=== PATIENT | male | born 1985 | race Caucasian/White ===

== ENCOUNTER 2016-08-02 08:32 | Emergency (ER) | payer MEDICAID ==
[~2016-08-02] VITALS: Ht 177.8 cm; Wt 93.0 kg
[~2016-08-02 08:32] MED LIST: AUGMENTIN 875-1 EACH PO; LEVAQUIN 750 M750 MG PO; MOTRIN600 M1 PO; MULTI VITAMINS1 TA1 PO; OMEPRAZOLE20 MG PO
[2016-08-02] MEDS ORDERED: PAROXETINE HCL20 MG NG (08:43)
--- NOTE | 2016-08-02 08:47 | Emergency Room Report ---
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 PT HAS PAIN IN HIS LEFT ANKLE. Onset of symptoms date/time:/ or onset unknown for:MEDICAL HX UNKNOWN Treatment Prior to Arrival: SAT INSTRUCTOR Provided by: Sepsis Risk Assessment: Temp: 98 B/P: 123/80 MAP: 94 Pulse: 86 Resp: 20 Recent fever? N Clinical Suspician of Infection? N Mental Status: 1 - Regular (Normal Baseline) Sepsis Risk:Low Sepsis Risk Have you (or family members/close friends) recently traveled outside the [place]? N If Yes, where/when: Have you had exposure to infectious disease within the past month? TB? Other? Specify: Comment The patient injured his ankle this morning when he stepped into a hole. He has pain around the lateral malleolus. No distal foot pain, knee pain, numbness or weakness. Took ibuprofen without improvement. ALLERGIES Coded Allergies: No Known Allergies (02/10/15) Home Medications Active Scripts Amoxicillin/Potassium Clav (Augmentin 875-125 Tablet) 1 EACH PO BID #20 TAB Prov: 05/23/16 Reported Medications PAROXETINE HCL (Paroxetine Hcl) 20 MG NG DAILY #30 History Medical History General CAD? No Angina: No [place]: No Hypertension? No Hyperlipidemia? No CHF? No DVT? No PE? No COPD? Yes Asthma? No Anemia? No GERD? No Gastric ulcers? No GI Bleed? No Hernia? No Thyroid Problems? No Hypothyroidism? No CVA? No Seizures? No Diabetes? No Renal Insuffiency? No End Stage Renal Disease? No UTI? No Stones? No BPH? No GB Disease: No Nephritic Syndrome? No Asplenia? No Hepatitis? No Sickle Cell Disease? No Arthritis? No Migraines? No Cataracts? No Glaucoma? No MRSA? No HIV? No TB? No Anxiety? No Depression? No Cancer? No Immunization Hx DT/Tetanus Unknown Surgical Hx Previous Surgery?Y LEFT ARM SURGERY Social History Smoking Hx Smoker: Current Every Day Smoker Tobacco: Yes Type Cigarettes Packs/day 1 1/2 - 2 Packs Alcohol Alcohol: Yes Review of Systems All Other Systems Reviewed and Negative Musculoskeletal see HPI Psychiatric/Neurological denies numbness, denies weakness Physical Exam Vital Signs Vital Signs Date Time Temp Pulse Resp B/P Pulse O2 O2 Flow FiO2 Ox Delivery Rate 08/02 0852 20 08/02 0837 98.0 86 20 123/80 97 General Appearance moderate distress Respiratory Status No: respiratory distress. Cardiovascular regular rate/rhythm, normal peripheral pulses Extremities tenderness and edema around his LEFT lateral malleolus. No ecchymosis. Skin intact., no tenderness of fifth metatarsal or mid foot. No proximal fibula tenderness. Neurologic alert, no motor/sensory deficits Medical Decision Making LABS/Meds/Orders Pt receiving controlled substance in ED? Yes Results/Orders Current Medication Orders Sig/Jeff Start time Last Medication Dose Route Stop Time Status Admin Oxycodone/ 1 EACH ONCE ONE 08/02 09 DC 08/02 Acetaminophen PO 08/02 0901 0852 Oxycodone/ 0 .STK-MED ONE 08/03 851 DC Acetaminophen PO Orders Procedure Date/time Status ANKLE-LT-3 VIEWS 08/02 08 Active XRAY/CT/US XRAY/CT/US XRAY ankle Comment Interpreted by Dillon Arce MD. Negative for fracture, dislocation, or foreign body. Departure Departure Disposition DC Home or Self Care(routine) Clinical Impression Primary Impression: Left ankle sprain Qualifiers: Encounter type: initial encounter Involved ligament of ankle: unspecified ligament Qualified Code: S93.402A - Sprain of unspecified ligament of left ankle, initial encounter Condition STABLE Referrals Frank Araya MD call for appointment if not better in 4-5 days. Patient Instructions DI for Ankle Sprain, How to Use Crutches Additional Instructions Use crutches for 4-5 days. Ice 20 minutes 4-5 times a day and elevate ankle for 2 days. Use air cast for 2 weeks. Ibuprofen for pain. Prescriptions Current Visit Scripts HYDROCODONE/ACETAMINOPHEN ([place] 5-325 Tablet) 1 TAB PO Q6HP PRN pain #6 TAB Ibuprofen (Ibuprofen 800MG) 800 MG PO Q8HP PRN pain #15 TAB ED Critical Care Critical Care No at 0919
--- NOTE | 2016-08-02 08:47 | Emergency Room Report ---
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 PT HAS PAIN IN HIS LEFT ANKLE. Onset of symptoms date/time:/ or onset unknown for:MEDICAL HX UNKNOWN Treatment Prior to Arrival: THERAPIST RRT Provided by: Sepsis Risk Assessment: Temp: 98 B/P: 123/80 MAP: 94 Pulse: 86 Resp: 20 Recent fever? N Clinical Suspician of Infection? N Mental Status: 1 - Regular (Normal Baseline) Sepsis Risk:Low Sepsis Risk Have you (or family members/close friends) recently traveled outside the [place]? N If Yes, where/when: Have you had exposure to infectious disease within the past month? TB? Other? Specify: Comment The patient injured his ankle this morning when he stepped into a hole. He has pain around the lateral malleolus. No distal foot pain, knee pain, numbness or weakness. Took ibuprofen without improvement. ALLERGIES Coded Allergies: No Known Allergies (02/10/15) Home Medications Active Scripts Amoxicillin/Potassium Clav (Augmentin 875-125 Tablet) 1 EACH PO BID #20 TAB Prov: 05/23/16 Reported Medications PAROXETINE HCL (Paroxetine Hcl) 20 MG NG DAILY #30 History Medical History General CAD? No Angina: No [place]: No Hypertension? No Hyperlipidemia? No CHF? No DVT? No PE? No COPD? Yes Asthma? No Anemia? No GERD? No Gastric ulcers? No GI Bleed? No Hernia? No Thyroid Problems? No Hypothyroidism? No CVA? No Seizures? No Diabetes? No Renal Insuffiency? No End Stage Renal Disease? No UTI? No Stones? No BPH? No GB Disease: No Nephritic Syndrome? No Asplenia? No Hepatitis? No Sickle Cell Disease? No Arthritis? No Migraines? No Cataracts? No Glaucoma? No MRSA? No HIV? No TB? No Anxiety? No Depression? No Cancer? No Immunization Hx DT/Tetanus Unknown Surgical Hx Previous Surgery?Y LEFT ARM SURGERY Social History Smoking Hx Smoker: Current Every Day Smoker Tobacco: Yes Type Cigarettes Packs/day 1 1/2 - 2 Packs Alcohol Alcohol: Yes Review of Systems All Other Systems Reviewed and Negative Musculoskeletal see HPI Psychiatric/Neurological denies numbness, denies weakness Physical Exam Vital Signs Vital Signs Date Time Temp Pulse Resp B/P Pulse O2 O2 Flow FiO2 Ox Delivery Rate 08/02 0852 20 08/02 0837 98.0 86 20 123/80 97 General Appearance moderate distress Respiratory Status No: respiratory distress. Cardiovascular regular rate/rhythm, normal peripheral pulses Extremities tenderness and edema around his LEFT lateral malleolus. No ecchymosis. Skin intact., no tenderness of fifth metatarsal or mid foot. No proximal fibula tenderness. Neurologic alert, no motor/sensory deficits Medical Decision Making LABS/Meds/Orders Pt receiving controlled substance in ED? Yes Results/Orders Current Medication Orders Sig/Jeff Start time Last Medication Dose Route Stop Time Status Admin Oxycodone/ 1 EACH ONCE ONE 08/02 09 DC 08/02 Acetaminophen PO 08/02 0901 0852 Oxycodone/ 0 .STK-MED ONE 08/03 851 DC Acetaminophen PO Orders Procedure Date/time Status ANKLE-LT-3 VIEWS 08/02 08 Active XRAY/CT/US XRAY/CT/US XRAY ankle Comment Interpreted by Dillon Arce MD. Negative for fracture, dislocation, or foreign body. Departure Departure Disposition DC Home or Self Care(routine) Clinical Impression Primary Impression: Left ankle sprain Qualifiers: Encounter type: initial encounter Involved ligament of ankle: unspecified ligament Qualified Code: S93.402A - Sprain of unspecified ligament of left ankle, initial encounter Condition STABLE Referrals Frank Araya MD call for appointment if not better in 4-5 days. Patient Instructions DI for Ankle Sprain, How to Use Crutches Additional Instructions Use crutches for 4-5 days. Ice 20 minutes 4-5 times a day and elevate ankle for 2 days. Use air cast for 2 weeks. Ibuprofen for pain. Prescriptions Current Visit Scripts HYDROCODONE/ACETAMINOPHEN ([place] 5-325 Tablet) 1 TAB PO Q6HP PRN pain #6 TAB Ibuprofen (Ibuprofen 800MG) 800 MG PO Q8HP PRN pain #15 TAB ED Critical Care Critical Care No at 0919
--- OUTSIDE RECORDS SUMMARY | 2016-08-02 08:57 | External Medical Summary Rpt ---
Author Author , Organization [employer] Address Unknown Phone Unavailable Care Team Providers Care Electrical Line Splicer Name Role Phone JAMAR DUARTE, JAMAR DUARTE Unavailable Unavailable JAMAR DUARTE, JAMAR DUARTE Unavailable Unavailable [employer] Unavailable Unavailable INC, [employer] [facility] Unavailable Unavailable PHYSICIANS, [facility] GABRIELA PADMINI, GABRIELA Unavailable Unavailable PADMINI [facility] Unavailable Unavailable INC, [facility] Unavailable Unavailable H[facility]PITAL, [facility] Unavailable Unavailable HOSPITAL P, [facility] EDUAR LAR, EDUAR Unavailable Unavailable [facility] Unavailable Unavailable IM[facility]ING [facility], [facility] CAROLA JR DWI, CAROLA Unavailable Unavailable JR DWI PETR TRAE, PETR Unavailable Unavailable [facility], Unavailable Unavailable PLL[facility], [facility] Unavailable Unavailable [facility], [facility], Unavailable Unavailable [facility] Unavailable Unavailable DIETARY TECH ST, [facility] Unavailable Unavailable PHYSICIANS, [facility] . [facility] CALDERON, Unavailable Unavailable [facility] YUMIKO FRANCO GEORGE, Unavailable Unavailable ST[facility]NE[facility]G GEORGE STEFANI SCO, STEFANI SCO Unavailable Unavailable Purpose Continuity of Care Document - 11-07-2011 through 2016 Problems Code Diagnosis DOS Provider Status I889 NONSPECIFIC 05-23-2016 [facility] LYMPHADENIT INC IS UNSPECIFIED Z720 TOBACCO USE 05-23-2016 [facility] INC K6289 OTHER 12-30-2015 JAMAR RAMACHANDRAN SPECIFIED DISEASES OF ANUS AND RECTUM K645 PERIANAL 12-30-2015 JAMAR RAMACHANDRAN VENOUS THROMBOSIS K122 CELLULITIS 08-25-2015 ST AND ABSCESS [facility] OF MOUTH PHYSICIANS Z6830 BODY MASS 08-25-2015 INDEX BMI REMY 30.0-30.9 PHYSICIANS ADULT V96997 ACUTE 05-27-2015 [place] SUPPURATIVE [facility] W/O HOSPITAL RUPT EAR DRUM UNS EAR J0190 ACUTE 05-27-2015 [place] SINUSITIS [facility] UNSPECIFIED HOSPITAL J029 ACUTE 05-27-2015 [place] PHARYNGITIS [facility] UNSPECIFIED B349 VIRAL 02-10-2015 [facility] INFE[facility], UNSPECIFIED PLLC J209 ACUTE 02-10-2015 [facility] BRONCHITIS [facility]ANS, UNSPECIFIED PLLC J449 CHRONIC 02-10-2015 [facility] DISEASE UNS R0602 SHORTNESS 02-10-2015 [place] [facility] R079 CHEST PAIN 02-10-2015 [facility] R918 OTHER 02-10-2015 [place] NONSPECIFIC MEDICAL ABNORMAL IMAGING ASS FINDING OF LUNG FIELD M545 LOW BACK 01-13-2015 ST. PAIN REMY YUMIKO 9057 LATE EFF 07-21-2014 ST SPRAIN&STRA REM[facility] IN W/O PHYSICIANS MENTION TENDON INJURY 30895 PAIN IN 07-19-2014 [facility] ANKLE AND OF [facility] FOOT 56181 SWELLING OF 07-19-2014 [facility] LIMB ASS[facility]IATES OF [facility] 13315 UNSPECIFIED 07-19-2014 [facility] ANKLE PHYSICIANS SPRAIN AND STRAIN 08591 UNSPECIFIED 12-18-2013 [facility] DIETARY TECH ST 7881 DYSURIA 12-18-2013 [facility] B34.9 VIRAL INFECTION, UNSPECIFIED J20.9 ACUTE BRONCHITIS, UNSPECIFIED M25.511 PAIN IN RIGHT SHOULDER T14.8 OTHER INJURY OF UNSPECIFIED BODY REGION Medications Na ND Rx Da Fi Fi Am Da Di Ph RX Ph St me C No te ll ll ou ys ag ar # ys at rm s nt no ma ic us Or Da si cy ia de te s n re d BE 67 04 05 30 10 00 RI Ac NZ 87 -1 -0 .0 00 TE ti ON 70 1- 5- 01 ve AT 10 20 20 17 AI AT 60 17 17 94 D E 1 24 PH 20 AR 0 MA MG CY CA #3 PS 93 UL 8 E PA 68 04 05 30 30 00 RI Ac RO 38 -1 -0 .0 00 TE ti XE 20 1- 5- 01 ve TI 09 20 20 17 AI NE 80 17 17 94 D 1 25 PH HC AR L MA 20 CY MG #3 93 TA 8 BL ET AM 66 03 03 20 10 00 RI Ac OX 68 -0 -3 .0 00 TE ti -C 51 6- 1- 01 ve LA 00 20 20 17 AI V 10 17 17 40 D 87 0 10 PH 5- AR 12 MA 5 CY MG #3 TA 93 BL 8 ET TR 59 02 03 3. 2 00 RI Ac IA 76 -1 -1 00 00 TE ti ZO 23 3- 0- 0 01 ve LA 71 20 20 17 AI M 80 17 17 09 D 0. 4 09 PH 25 AR MA MG CY TA #3 BL 93 ET 8 AM 00 02 03 30 10 00 RI Ac OX 78 -1 -1 .0 00 TE ti IC 12 4- 0- 00 01 ve IL 61 20 20 17 AI LI 30 17 17 10 D N 5 26 PH 50 AR 0 MA MG CY CA #3 PS 93 UL 8 E SC 65 02 03 15 3 00 RI Ac OM 16 -1 -1 .0 00 TE ti ET 20 4- 0- 00 01 ve SCHROEDER 52 20 20 17 AI ZI 11 17 17 10 D NE 0 29 PH AR 25 MA CY MG #3 TA 93 BL 8 ET IB 53 02 03 30 7 00 RI Ac UP 74 -1 -1 .0 00 TE ti RO 60 4- 0- 00 01 ve FE 46 20 20 17 AI N 50 17 17 10 D 60 1 30 PH 0 AR MG MA CY TA BL #3 ET 93 8 ME 00 02 03 21 6 00 RI Ac TH 78 -1 -1 .0 00 TE ti YL 15 4- 0- 00 01 ve SC 02 20 20 17 AI ED 20 17 17 10 D NI 7 31 PH SO AR LO MA NE CY 4 #3 MG 93 8 DO SE PK LI 50 02 03 10 5 00 RI Ac DO 38 -1 -1 0. 00 TE ti CA 30 4- 0- 00 01 ve IN 77 20 20 0 17 AI E 50 17 17 10 D 2% 4 32 PH AR MA SC CY OU S #[address] 8 HY 00 02 03 [address] 40 -1 -1 .0 00 TE ti OC 60 4- 0- 00 01 ve OD 12 20 20 17 AI ON 30 17 17 10 D -A 1 34 PH CE AR TA MA DE CY NO PH #3 EN 93 8 5- 32 5 AM 00 12 01 20 10 00 WA Ac OX 14 -2 -2 .0 00 L- ti IC 39 9- 0- 00 07 MA ve IL 95 20 20 46 RT LI 10 16 17 15 N 1 16 PH 87 AR 5 MA MG CY TA #5 BL 91 ET BR 60 12 01 18 3 00 WA Ac OM 43 -2 -2 0. 00 L- ti PH 20 9- 0- 00 07 MA ve EN 27 20 20 0 46 RT IR 51 16 17 15 -P 6 17 PH SE AR UD MA OE CY PH ED #5 -D 91 M SY R Procedures Procedure DOS Code Location Performer Comment IAACORDELL [address] ST PETR 6 REM[facility] LARKIN STREPTOCO CCUS PHYSICIAN GROUP A S ECG 27551 [facility] SRIVASTAVA JR ROUTINE 5 [facility] W/LEAST P 12 LDS I&[place] [address] [facility] PACKER TROPONIN [address] [facility] QUANTITAT INC INC MOHINI BLOOD 34202 [facility] PACKER COUNT [address] [facility] COMPLETE INC INC AUTO&AUTO DIFRNTL WBC INJECTION J2405 [facility] PACKER [address] [facility] ONDANSETR INC INC ON HCL PER 1 MG COMPREHEN 04070 [facility] PACKER SIVE [address] [facility] METABOLIC INC INC PANEL CREATINE 83250 [facility] PACKER KINASE MB [address] [facility] FRACTION INC INC ONLY ECG 19268 [facility] PACKER ROUTINE [address] [facility] ECG INC INC W/LEAST 12 LDS TRCG ONLY W/O I&R FIBRIN 96675 [facility] PACKER DGRADJ [address] [facility] PRODUCTS INC INC D-DIMER QUAL/SEMI AVIVA IMMUNOASS 69336 [facility] PACKER AY NFCT [address] [facility] AGT ANTB INC INC QUAL/SEMI AVIVA 1 STEP CREATINE 59004 [facility] PACKER KINASE [address] [facility] TOTAL INC INC RADIOLOGI 54917 [facility] PACKER C EXAM [address] [facility] CHEST 2 INC INC VIEWS FRONTAL&[place] [address] [facility] PACKER INFUSION [address] [facility] THERAPY/P INC INC ROPHYLAXI S /DX 1ST TO 1 HR THERAPEUT 31607 [facility] PACKER IC [address] [facility] INJECTION INC INC IV PUSH EACH NEW DRUG THERAPEUT [address]10 ST STERNEBER IC 5 REMY Sanchez GEORGE PROPHYLAC TIC/DX PHYSICIAN INJECTION S SUBQ/IM RADEX [address] SPINE 5 REMY ALBERTO LUMBOSACR YUMIKO CALDERON AL 2/[address] IN[address] STERNEBER 5 REMY Sanchez GEORGE METHYLPRE DNISOLONE PHYSICIAN ACETATE S 80 MG CRTCHS E0114 [facility] UNDARM 5 TECHNOLOG TECHNOLOG OTH THAN IES INC IES INC WOOD PAIR PAD TIP&HNDGR IP ANKLE L4350 [facility] CONTROL 5 TECHNOLOG TECHNOLOG ORTHOSIS IES INC IES INC STIRRUP STYL RIGID PREFAB RADEX 88455 RADIOLOGY STEFANI SCO ANKLE 5 COMPLETE ASSOCIATE MINIMUM 3 S OF NOTH VIEWS IADNA [address] NEISSERIA 4 [facility] GONORRHOE DIETARY TECH ST DIETARY TECH ST AE AMPLIFIED PROBE TQ IADNA [address] CHLAMYDIA 4 [facility] TRACHOMAT DIETARY TECH ST DIETARY TECH ST IS AMPLIFIED PROBE TQ Encounters Encounter Start End Date Code Location Performer Type Date HOSPITAL [facility] - 7 7 [facility]EN [facility] T OFFICE 68800 [facility] 7 7 [facility] T VISIT 5 [facility] MINUTES OFFICE 18754 JAMAR ROLDAN [facility] OUTPATIEN 6 6 [facility] 30 MINUTES OFFICE 99018 [facility] OUTPATIEN 6 6 REMY KAT T VISIT 15 PHYSICIAN MINUTES S OFFICE 00205 [facility] OUTPAT[facility]EN 6 6 [facility] 15 MINUTES EMERGENCY 10912 [facility] COOPER DEPT 5 5 PHYSICIAN U VISIT S, PLLC HIGH SEVERITY& THREAT [facility] - 5 5 [facility] OUTPATIEN INC T OFFICE 92530 [facility] OUTPATIEN [address] - 5 5 REM[facility] T OFFICE [address] PETR GIRON 5 5 REMY LARKIN T VISIT 15 PHYSICIAN MINUTES S EMERGENCY 59756 JOSÉ MANUEL WITT 5 5 EMERGENCY [facility] T VISIT PHYSICIAN HIGH/URGE S [facility] ST - 4 4 [facility] T DIETARY TECH ST
--- OUTSIDE RECORDS SUMMARY | 2016-08-02 08:57 | External Medical Summary Rpt ---
Author Author , Organization [employer] Address Unknown Phone Unavailable Care Team Providers Care Criminal Justice Social Worker Name Role Phone JAMAR DUARTE, JAMAR DUARTE Unavailable Unavailable JAMAR DUARTE, JAMAR DUARTE Unavailable Unavailable [employer] Unavailable Unavailable INC, [employer] [facility] Unavailable Unavailable PHYSICIANS, [facility] GABRIELA PADMINI, GABRIELA Unavailable Unavailable PADMINI [facility] Unavailable Unavailable INC, [facility] Unavailable Unavailable [facility]ITAL, [facility] Unavailable Unavailable [facility]OSPITAL P, [facility] EDUAR LAR, EDUAR Unavailable Unavailable [facility] Unavailable Unavailable IMAGING ASS, [facility] CAROLA JR DWI, CAROLA Unavailable Unavailable JR DWI PETR TRAE, PETR Unavailable Unavailable TRAE [facility], Unavailable Unavailable PLLC, [facility]available Unavailable OF [facility], [facility], [facility]available Unavailable [facility] Unavailable Unavailable AIRPORT DRIVER ST, [facility] AIRPORT DRIVER [facility] Unavailable Unavailable PHYSICIANS, [facility] . REMY CALDERON, Unavailable Unavailable [facility] YUMIKO FRANCO GEORGE, Unavailable Unavailable STERNEBERG GEORGE STEFANI SCO, STEFANI SCO Unavailable Unavailable Purpose Continuity of Care Document - 11-07-2011 through 2016 Problems Code Diagnosis DOS Provider Status I889 NONSPECIFIC 05-23-2016 [facility] LYMPHADENIT INC IS UNSPECIFIED Z720 TOBACCO USE 05-23-2016 [facility] INC K6289 OTHER 12-30-2015 JAMAR RAMACHANDRAN SPECIFIED DISEASES OF ANUS AND RECTUM K645 PERIANAL 12-30-2015 JAMAR RAMACHANDRAN VENOUS THROMBOSIS K122 CELLULITIS 08-25-2015 ST AND ABSCESS REM[facility] OF MOUTH PHYSICIANS Z6830 BODY MASS 08-25-2015 INDEX BMI REMY 30.0-30.9 PHYSICIANS ADULT J08384 ACUTE 05-27-2015 [place] SUPPURATIVE [facility] W/O HOSPITAL RUPT EAR DRUM UNS EAR J0190 ACUTE 05-27-2015 [place] SINUSITIS [facility] UNSPECIFIED HOSPITAL J029 ACUTE 05-27-2015 [place] PHARYNGITIS [facility] UNSPECIFIED B349 VIRAL 02-10-2015 [facility] INFECTION [facility], UNSPECIFIED PLLC J209 ACUTE 02-10-2015 [facility] BRONCHITIS PHYSICIANS, UNSPECIFIED PLLC J449 CHRONIC 02-10-2015 [facility] P DISEASE UNS R0602 SHORTNESS 02-10-2015 [place] [facility] R079 CHEST PAIN 02-10-2015 [facility] R918 OTHER 02-10-2015 [place] NONSPECIFIC MEDICAL ABNORMAL IMAGING ASS FINDING OF LUNG FIELD M545 LOW BACK 01-13-2015 ST. PAIN REMY YUMIKO 9057 LATE EFF 07-21-2014 ST SPRAIN&STRA REMY IN W/O PHYSICIANS MENTION TENDON INJURY 91147 PAIN IN 07-19-2014 [facility] ANKLE AND OF [facility] FOOT 26031 SWELLING OF 07-19-2014 RAD[facility] LIMB ASSOCIATES OF [facility] 89469 UNSPECIFIED 07-19-2014 [facility] SITE OF EMERGENCY ANKLE PHYSICIANS SPRAIN AND STRAIN 30684 UNSPECIFIED 12-18-2013 [facility]IS [facility] AIRPORT DRIVER [facility] 7881 DYSURIA 12-18-2013 [facility] DRIVER ST B34.9 VIRAL INFECTION, UNSPECIFIED J20.9 ACUTE [...] CA #3 PS 93 UL 8 E UT 65 02 03 15 3 00 RI [...] YL 15 4- 0- 00 01 ve UT 02 20 20 17 AI ED 20 [...] 1 34 PH CE AR TA MA AR CY NO PH #3 EN 93 8 [...] Procedure DOS Code Location Performer Comment IAACORDELL 07762 ST PETR 6 REMY LARKIN STREPTOCO CCUS PHYSICIAN GROUP A S ECG 03531 [facility] SRIVASTAVA JR ROUTINE 5 [facility] W/LEAST P 12 LDS I&[place] [address] [facility] PACKER TROPONIN 5 [facility] QUANTITAT INC INC MOHINI BLOOD 87279 [facility] PACKER COUNT 5 [facility] COMPLETE INC INC AUTO&AUTO DIFRNTL WBC INJECTION J2405 [facility] PACKER 5 [facility] ONDANSETR INC INC ON HCL PER 1 MG COMPREHEN 89457 [facility] PACKER SIVE 5 [facility] METABOLIC INC INC PANEL CREATINE 03849 [facility] PACKER KINASE MB 5 [facility] FRACTION INC INC ONLY ECG 60771 [facility] PACKER ROUTINE 5 [facility] ECG INC INC W/LEAST 12 LDS TRCG ONLY W/O I&R FIBRIN 00151 [facility] PACKER DGRADJ 5 [facility] PRODUCTS INC INC D-DIMER QUAL/SEMI AVIVA IMMUNOASS 93811 [facility] PACKER AY NFCT 5 [facility] AGT ANTB INC INC QUAL/SEMI AVIVA 1 STEP CREATINE 02785 [facility] PACKER KINASE 5 [facility] TOTAL INC INC RADIOLOGI 60973 [facility] PACKER C EXAM 5 [facility] CHEST 2 INC INC VIEWS FRONTAL&[place] [address] [facility] PACKER INFUSION 5 [facility] THERAPY/P INC INC ROPHYLAXI S /DX 1ST TO 1 HR THERAPEUT 91085 [facility] PACKER IC 5 [facility] INJECTION INC INC IV PUSH EACH NEW DRUG THERAPEUT [address]56 ST STERNEBER IC 5 REMY Sanchez GEORGE PROPHYLAC TIC/DX PHYSICIAN INJECTION S SUBQ/IM RADEX [address] SPINE 5 REMY ALBERTO LUMBOSACR [...] IES INC STIRRUP STYL RIGID PREFAB RADEX 49634 RADIOLOGY STEFANI SCO ANKLE 5 COMPLETE ASSOCIATE MINIMUM 3 S OF NOTH VIEWS IADNA [address] NEISSERIA 4 [facility] CTR MED CTR GONORRHOE AIRPORT DRIVER ST AIRPORT DRIVER ST AE AMPLIFIED PROBE TQ IADNA [address] CHLAMYDIA 4 [facility] CTR MED CTR TRACHOMAT AIRPORT DRIVER ST AIRPORT DRIVER ST IS AMPLIFIED PROBE TQ Encounters Encounter Start End Date Code Location Performer Type Date HOSPITAL [facility] - 7 7 [facility] T OFFICE 99405 [facility] OUT[facility] 7 7 [facility] T VISIT 5 [facility] MINUTES OFFICE 01992 JAMAR ROLDAN [facility] OUTPATI[facility] 6 6 T [facility] 30 MINUTES OFFICE 67515 [facility] OUTPATIEN 6 6 REMY KAT T VISIT 15 PHYSICIAN MINUTES S OFFICE 18656 [facility] OUTPAT[facility]EN 6 6 [facility] 15 MINUTES EMERGENCY [id number] ELIEZER COOPER DEPT 5 5 PHYSICIAN U VISIT S, PLL[facility] HIGH SEVERITY& THREAT [facility] - 5 5 [facility] T OFFICE 47978 [facility] [address] - 5 5 [facility] T OFFICE [address] [facility] 5 5 REMY LARKIN T VISIT 15 PHYSICIAN MINUTES S EMERGENCY [id number] JOSÉ MANUEL WITT 5 [address] [facility] T VISIT PHYSICIAN HIGH/URGE S [facility] - 4 4 [facility] T AIR[facility] DR[facility] ST
--- OUTSIDE RECORDS SUMMARY | 2016-08-02 08:58 | External Medical Summary Rpt ---
Author Author , Organization [employer] Address Unknown Phone Unavailable Care Team Providers Care Central Supply Assistant Name Role Phone JAMAR DUARTE, JAMAR DUARTE Unavailable Unavailable ROLDAN DUARTE, JAMAR DUARTE Unavailable Unavailable [employer] Unavailable Unavailable INC, [employer] [facility] Unavailable Unavailable PHYSICIANS, [facility] GABRIELA PADMINI, GABRIELA Unavailable Unavailable PADMINI [facility] Unavailable Unavailable INC, [facility] Unavailable [facility] Un[facility] P, [facility] P EDUAR LAR, EDUAR Unavailable Unavailable [facility] Unavailable Unavailable [facility], [facility] CAROLA JR DWI, CAROLA Unavailable Unavailable JR DWI PETR LARKIN, PETR Unavailable Unavailable [facility], Unavailable Unavailable PLL[facility], [facility] Unavailable Unavailable OF [facility], [facility], Unavailable Unavailable [facility] Unavailable Unavailable [facility], [facility] Unavailable Unavailable PH[facility]ICIANS, [facility] REMYSUZAN CALDERON, Unavailable Unavailable [facility] YUMIKO STERNEBGUALBERTO GEORGE, Unavailable Unavailable STERNEBERG GEORGE STEFANI SCO, STEFANI SCO Unavailable Unavailable Purpose Continuity of Care Document - 12-18-2013 through 2016 Problems Code Diagnosis DOS Provider Status I889 NONSPECIFIC 05-23-2016 [facility] LYMPHADENIT INC IS UNSPECIFIED Z720 TOBACCO USE 05-23-2016 [facility] INC K6289 OTHER 12-30-2015 JAMAR RAMACHANDRAN SPECIFIED DISEASES OF ANUS AND RECTUM K645 PERIANAL 12-30-2015 JAMAR RAMACHANDRAN VENOUS THROMBOSIS K122 CELLULITIS 08-25-2015 ST AND ABSCESS [facility] OF MOUTH PHYSICIANS Z6830 BODY MASS 08-25-2015 INDEX BMI REMY 30.0-30.9 PHYSICIANS ADULT [id number] ACUTE 05-27-2015 [place] SUPPURATIVE [facility] W/O HOSPITAL RUPT EAR DRUM UNS EAR J0190 ACUTE 05-27-2015 [place] SINUSITIS [facility] UNSPECIFIED HOSPITAL J029 ACUTE 05-27-2015 [place] PHARYNGITIS [facility] UNSPECIFIED B349 VIRAL 02-10-2015 [facility] INFECTION [facility], UNSPECIFIED PLLC J209 ACUTE 02-10-2015 [facility] BRONCHITIS PHYSICIANS, UNSPECIFIED PLLC J449 CHRONIC 02-10-2015 [facility] P DISEASE UNS R0602 SHORTNESS 02-10-2015 [place] [facility] R079 CHEST PAIN 02-10-2015 [facility] R918 OTHER 02-10-2015 [place] NONSPECIFIC MEDICAL ABNORMAL IMAGING ASS FINDING OF LUNG FIELD M545 LOW BACK 01-13-2015 ST. PAIN [facility]Y YUMIKO 9057 LATE EFF 07-21-2014 ST SPRAIN&STRA [facility] IN W/O PHYSICIANS MENTION TENDON INJURY 32764 PAIN IN 07-19-2014 [facility] JOINT, ASSOCIATES ANKLE AND OF [facility] FOOT 68785 SWELLING OF 07-19-2014 [facility] LIMB [facility] OF [facility] 94765 UNSPECIFIED 07-19-2014 [facility] EMERGENCY ANKLE PHYSICIANS SPRAIN AND STRAIN 78158 UNSPECIFIED 12-18-2013 ST URETHRITIS [facility] CTR [facility] [facility] [facility] 7881 DYSURIA 12-18-2013 [facility] CTR [facility] S[facility] Medications Na ND Rx Da Fi Fi [...] 00 TE ti ON 70 1- 5- 00 01 ve AT 10 20 20 17 AI AT 60 17 17 94 D E 1 24 PH 20 AR 0 MA MG CY CA #3 PS 93 UL 8 E PA 68 04 05 30 30 00 RI Ac RO 38 -1 -0 .0 00 TE ti XE 20 1- 5- 00 01 ve TI 09 20 20 17 AI NE 80 17 17 94 D 1 25 PH HC AR L MA 20 CY MG #3 93 TA 8 BL ET AM 66 03 03 20 10 00 RI Ac OX 68 -0 -3 .0 00 TE ti -C 51 6- 1- 00 01 ve LA 00 20 20 17 AI V 10 17 17 40 D 87 0 10 PH 5- AR 12 MA 5 CY MG #3 TA 93 BL 8 ET AM 00 02 03 30 10 00 RI Ac OX 78 -1 -1 .0 00 TE ti IC 12 4- 0- 00 01 ve IL 61 20 20 17 AI LI 30 17 17 10 D N 5 26 PH 50 AR 0 MA MG CY CA #3 PS 93 UL 8 E MT 65 02 03 15 3 00 RI [...] YL 15 4- 0- 00 01 ve MT 02 20 20 17 AI ED 20 [...] 1 34 PH CE AR TA MA TN CY NO PH #3 EN 93 8 5- 32 5 TR 59 02 03 3. 2 00 RI Ac IA 76 -1 -1 00 00 TE ti ZO 23 3- 0- 0 01 ve LA 71 20 20 17 AI M 80 17 17 09 D 0. 4 09 PH 25 AR MA MG CY TA #3 BL 93 ET 8 AM 00 12 01 20 10 00 [...] Procedures Procedure DOS Code Location Performer Comment IAADIADOO [address] ST PETR 6 REM[facility] LARKIN ANGELESOCO [facility] S FIBRIN 93497 [facility] PACKER DGRADJ 5 [facility] PRODUCTS INC INC D-DIMER QUAL/SEMI AVIVA IMMUNOASS 30949 [facility] PACK[facility] AY NFCT 5 [facility] AGT ANTB INC INC QUAL/SEMI AVIVA 1 STEP CREATINE 59629 [facility] KINASE 5 [facility] TOTAL INC INC ECG 08859 [facility] P[facility] ROUTINE 5 [facility] ECG INC INC W/LEAST 12 LDS TRCG ONLY W/O I&R INJECTION J2405 [facility] PACKER 5 [facility] ONDANSETR INC INC ON HCL PER 1 MG COMPREHEN 27519 [facility] SIVE [facility] METABOLIC INC INC PANEL CREATINE 95550 [facility] PACK[facility] KINASE MB 5 [facility] [place] [address] [facility] PACKER TROPONIN 5 [facility] QUANTITAT INC INC MOHINI BLOOD 80546 [facility] PACKER COUNT 5 [facility] COMPLETE INC INC AUTO&[place] [address] [facility] INFUSION 5 [facility] THERAPY/P INC INC ROPHYLAXI S /DX 1ST TO 1 HR THERAPEUT 26071 [facility] PACKER IC 5 [facility] INJECTION INC INC IV PUSH EACH NEW DRUG RADIOLOGI 14697 [facility] PACKER C EXAM 5 [facility] CHEST 2 INC INC VIEWS FRONTAL&L ATERAL ECG 19188 [facility] SRIVASTAVA JR ROUTINE 5 [facility] W/LEAST P 12 LDS I&R ONLY INJECTION J1040 ST STERNEBER 5 REMY VAZQUEZ METHYLPRE DNISOLONE PHYSICIAN ACETATE S [address] STERNEBER IC 5 REMY Sanchez GEORGE PROPHYLAC TIC/DX PHYSICIAN INJECTION S SUBQ/IM RADEX [address] SPINE 5 REMY REMY LUMBOSACR YUMIKO YUMIKO AL 2/3 VIEWS CRTCHS E0114 [facility]VANCED ADVANCED UNDARM 5 TECHNOLOG TECHNOLOG OTH THAN IES INC IES INC WOOD PAIR PAD TIP&HNDGR IP ANKLE L4350 [facility]VANCED AD[facility]ANCED CONTROL 5 TECHNOLOG TECHNOLOG ORTHOSIS IES INC IES INC STIRRUP STYL RIGID PREFAB RADEX 90822 RADIOLOGY STEFANI SCO ANKLE 5 COMPLETE ASSOCIATE MINIMUM 3 S OF NOTH VIEWS IADNA [address] CHLAMYDIA 4 [facility] CTR MED CTR TRACHOMAT EDGE SANDER ST EDGE [facility]ANDER [facility] IS AMPLIFIED PROBE TQ IADNA [address] NEISSERIA 4 [facility] CTR MED CTR GONORRHOE EDGE SANDER [facility] EDGE SANDER [facility] AE AMPLIFIED PROBE TQ Encounters Encounter Start End Date Code Location Performer Type Date [facility] - 7 7 [facility] OUTPATIEN INC T OFFICE 84957 [facility] OUTPATIEN 7 7 [facility] T VISIT 5 [facility] MINUTES OFFICE 09117 JAMAR ROLDAN [facility] OUTPATI[facility] 6 6 T [facility] 30 MINUTES OFFICE 01477 PETR OUTPATIEN 6 6 REMY TRAE T VISIT 15 PHYSICIAN MINUTES S OFFICE 56142 [facility] 6 [facility] 15 [facility] - 5 5 [facility] OUTPATIEN INC T EMERGENCY 60776 [facility] DEPT 5 5 PHYSICIAN U VISIT S, PLLC HIGH SEVERITY& THREAT FUNJ OFFICE 30349 [facility] OUTPATIEN [address] - 5 5 REMY OUTPATIEN YUMIKO T OFFICE 51381 PETR OUTPATIEN 5 5 REMY TRAE T VISIT 15 PHYSICIAN MINUTES S EMERGENCY 31319 JOSÉ MANUEL WITT 5 5 EMERGENCY LAR DEPARTMEN T VISIT PHYSICIAN /ELICIA Bangura [facility] ST - 4 4 REM[facility] GIRON [facility] T EDGE SANDER ST
--- OUTSIDE RECORDS SUMMARY | 2016-08-02 08:58 | External Medical Summary Rpt ---
Author Author , Organization [employer] Address Unknown Phone Unavailable Care Team Providers Care Poultry Packer Name Role Phone JAMAR DUARTE, JAMAR DUARTE Unavailable Unavailable ROLDAN DUARTE, JAMAR DUARTE Unavailable Unavailable [employer] Unavailable Unavailable INC, [employer] [facility] Unavailable Unavailable PHYSICIANS, [facility] GABRIELA PADMINI, GABRIELA Unavailable Unavailable PADMINI [facility] Unavailable Unavailable INC, [facility] Unavailable Unavailable HOSPITAL, [facility] Unavailable Unavailable HOSPITAL P, [facility] P EDUAR LAR, EDUAR Unavailable Unavailable [facility] Unavailable Unavailable IM[facility]ING [facility], [facility] CAROLA JR DWI, CAROLA Unavailable Unavailable JR DWI PETR LARKIN, PETR Unavailable Unavailable [facility], Unavailable Unavailable PLLC, [facility] Unavailable Unavailable OF [facility], [facility], Unavailable Unavailable [facility] Unavailable Unavailable LOADER OPERATOR ST, [facility] LOAD[facility] OPERATOR [facility] Unavailable Unavailable PHYSICIANS, [facility]. REMYSUZAN CALDERON, Unavailable Unavailable [facility] YUMIKO STERNEBGUALBERTO GEORGE, Unavailable Unavailable STERNEBERG GEORGE STEFANI SCO, STEFANI SCO Unavailable Unavailable Purpose Continuity of Care Document - 12-18-2013 through 2016 Problems Code Diagnosis DOS Provider Status I889 NONSPECIFIC 05-23-2016 [facility] LYMPHADENIT INC IS UNSPECIFIED Z720 TOBACCO USE 05-23-2016 [facility] INC K6289 OTHER 12-30-2015 JAMAR RAMACHANDRAN SPECIFIED DISEASES OF ANUS AND RECTUM K645 PERIANAL 12-30-2015 JAMAR RAMACHANDRAN VENOUS THROMBOSIS K122 CELLULITIS 08-25-2015 ST AND ABSCESS [facility] OF MOUTH PHYSICIANS Z6830 BODY MASS 08-25-2015 INDEX BMI REMY 30.0-30.9 PHYSICIANS ADULT [id number] ACUTE 05-27-[address] [facility] W/O HOSPITAL RUPT EAR DRUM UNS EAR J0190 ACUTE 05-27-2015 SHOW LOW SINUSITIS [facility] UNSPECIFIED HOSPITAL J029 ACUTE 05-27-2015 SHOW LOW PHARYNGITIS [facility] UNSPECIFIED B349 VIRAL 02-10-2015 [facility] INFECTION [facility], UNSPECIFIED PLLC J209 ACUTE 02-10-2015 [facility] BRONCHITIS PHYSICIANS, UNSPECIFIED PLLC J449 CHRONIC 02-10-2015 [facility] P DISEASE UNS R0602 SHORTNESS 02-10-2015 [place] [facility] R079 CHEST PAIN 02-10-2015 [facility] R918 OTHER 02-10-2015 [place] NONSPECIFIC MEDICAL ABNORMAL IMAGING ASS FINDING OF LUNG FIELD M545 LOW BACK 01-13-2015 ST. PAIN REMY YUMIKO 9057 LATE EFF 07-21-2014 ST SPRAIN&STRA REMY IN W/O PHYSICIANS MENTION TENDON INJURY 73517 PAIN IN 07-19-2014 [facility] ANKLE AND OF [facility] FOOT 09020 SWELLING OF 07-19-2014 [facility] LIMB [facility] OF [facility] 93949 UNSPECIFIED 07-19-2014 [facility] SITE OF EMERGENCY ANKLE PHYSICIANS SPRAIN AND STRAIN 09262 UNSPECIFIED 12-18-2013 ST URE[facility]RITIS [facility] CTR LOADER OPERATOR ST 7881 DYSURIA 12-18-2013 ST [facility] CTR LOADER OPERATOR ST Medications Na ND Rx Da Fi [...] CA #3 PS 93 UL 8 E OH 65 02 03 15 3 00 RI [...] YL 15 4- 0- 00 01 ve OH 02 20 20 17 AI ED 20 [...] 1 34 PH CE AR TA MA IA CY NO PH #3 EN 93 8 [...] Procedure DOS Code Location Performer Comment IAADIADOO 18153 ST PETR 6 REMY LARKIN ANGELESOCO CCUS PHYSICIAN GROUP A S FIBRIN 31286 [facility] PACKER DGRADJ 5 [facility] PRODUCTS INC INC D-DIMER QUAL/SEMI AVIVA IMMUNOASS 73683 [facility] PACKER AY NFCT 5 [facility] AGT ANTB INC INC QUAL/SEMI AVIVA 1 STEP CREATINE 10241 [facility] PACKER KINASE 5 [facility] TOTAL INC INC ECG 54152 [place] PACKER ROUTINE 5 [facility] ECG INC INC W/LEAST 12 LDS TRCG ONLY W/O I&R INJECTION J2405 [facility] PACKER 5 [facility] ONDANSETR INC INC ON HCL PER 1 MG COMPREHEN 79471 [facility] P[facility] SIVE 5 [facility] INC PANEL CREATINE 62538 [facility] PACKER KINASE MB 5 [facility] [place] [address] [facility] PACKER TROPONIN 5 [facility] QUANTITAT INC INC MOHINI BLOOD 17357 [facility] PACKER COUNT 5 [facility] COMPLETE INC INC AUTO&[place] [address] [facility] PACKER INFUSION 5 [facility] THERAPY/P INC INC ROPHYLAXI S /DX 1ST TO 1 HR THERAPEUT 56305 [facility] PACKER IC 5 [facility] INJECTION INC INC IV PUSH EACH NEW DRUG RADIOLOGI 69437 [facility] PACKER C EXAM 5 [facility] CHEST 2 INC INC VIEWS FRONTAL&L ATERAL ECG 71053 [facility] SRIVASTAVA JR ROUTINE 5 [facility] W/LEAST P 12 LDS I&R ONLY INJECTION J1040 ST STERNEBER 5 REMY VAZQUEZ METHYLPRE DNISOLONE PHYSICIAN ACETATE S [address] STERNEBER IC 5 REMY Sanchez GEORGE PROPHYLAC TIC/DX PHYSICIAN INJECTION S SUBQ/IM RADEX [address] SPINE 5 REMY REMY LUMBOSACR YUMIKO YUMIKO AL 2/3 VIEWS CRTCHS E0114 ADVANCED ADVANCED UNDARM 5 TECHNOLOG TECHNOLOG OTH THAN IES INC IES INC WOOD PAIR PAD TIP&HNDGR IP ANKLE L4350 ADVANCED ADVANCED CONTROL 5 TECHNOLOG TECHNOLOG ORTHOSIS IES INC IES INC STIRRUP STYL RIGID PREFAB RADEX 18131 RADIOLOGY STEFANI SCO ANKLE 5 COMPLETE ASSOCIATE MINIMUM 3 S OF NOTH VIEWS IADNA [address] CHLAMYDIA 4 [facility] MED CTR TRACHOMAT LOADER OPERATOR ST LOADER OPERATOR ST IS AMPLIFIED PROBE TQ IADNA [address] NEISSERIA 4 [facility] MED CTR GONORRHOE LOADER OPERATOR ST LOADER OPERATOR ST AE AMPLIFIED PROBE TQ Encounters Encounter Start End Date Code Location Performer Type Date [facility] - 7 7 [facility] OUTPATIEN INC T OFFICE 13326 [facility] OUTPATIEN 7 7 [facility] T VISIT 5 [facility] MINUTES OFFICE 08950 JAMAR ROLDAN [facility] OUTPATIEN 6 6 T [facility] 30 MINUTES OFFICE 45609 PETR OUTPATIEN 6 6 REMY TRAE T VISIT 15 PHYSICIAN MINUTES S OFFICE 19221 [facility] 6 [facility] 15 [facility] - 5 5 [facility] OUTPATIEN INC T EMERGENCY 47340 [facility] DEPT 5 5 PHYSICIAN U VISIT S, PLLC HIGH SEVERITY& THREAT FUNJ OFFICE 45107 [facility] OUTPATIEN [address] - 5 5 REMY OUTPATIEN YUMIKO T OFFICE 88792 PETR OUTPATIEN 5 5 REMY TRAE T VISIT 15 PHYSICIAN MINUTES S EMERGENCY 09558 JOSÉ MANUEL WITT 5 5 EMERGENCY LAR DEPARTMEN T VISIT PHYSICIAN /ELICIA Bangura [facility] ST - 4 4 REMY GIRON [facility] T LOADER OPERATOR ST
--- OUTSIDE RECORDS SUMMARY | 2016-08-02 08:59 | External Medical Summary Rpt ---
Demographics Preferred Language Slovak Marital Status Unknown Nondenominational Affiliation Unknown Race Unknown Ethnic Group Unknown Author Author , Organization [employer] Address Unknown Phone Unavailable Purpose Continuity of Care Document - through 2016 Immunization No patient found.
--- OUTSIDE RECORDS SUMMARY | 2016-08-02 08:59 | External Medical Summary Rpt ---
Author Author [employer]ENRRYAMELIA [employer], [employer] Organization [employer] Address Unknown Phone Unavailable Results Testost Observa Value Referen Units Interpr Notes Date tion ce etation Range Testost 299 300 - ng/dL Low Values Jun 28 erone 1080 less 2017 Lvl than 12 3:26 PM ng/dL are not reliabl e as the interme diate precisi on coeffic ient of variati on is > 20%. TSH Reflex Observa Value Referen Units Interpr Notes Date tion ce etation Range Thyrotr 3.260 0.270 - mcIU/mL No No Jun 28 opin 4.200 informa informa 2016 [Units/ tion in tion in 3:23 PM volume] source source in data data Serum or Plasma CBC Observa Value Referen Units Interpr Notes Date tion ce etation Range LEUKOCY 6.1 4.0 - x10(3)/ No No Jun 28 ELIF 11.0 mcL informa informa 2016 tion in tion in 3:08 PM source source data data Erythro 5.53 4.30 - x10(6)/ No No Jun 28 cytes 5.81 mcL informa informa 2016 [#/volu tion in tion in 3:08 PM me] in source source Blood data data by Automat ed count Hemoglo 15.8 13.5 - gm/dL No No Jun 28 bin 17.1 informa informa 2016 [Mass/v tion in tion in 3:08 PM olume] source source in data data Blood Hematoc 47.5 38.9 - % No No Jun 28 rit 51.6 informa informa 2017 [Volume tion in tion in 3:08 PM source source Fractio data data n] of Blood by Automat ed count Erythro 85.9 82.5 - fL No No Jun 28 cyte 99.8 informa informa 2017 mean tion in tion in 3:08 PM corpusc source source ular data data volume [Entiti c volume] by Automat ed count Erythro 28.6 27.0 - pg No No Jun 28 cyte 34.3 informa informa 2017 mean tion in tion in 3:08 PM corpusc source source ular data data hemoglo bin [Entiti c mass] by Automat ed count Erythro 33.3 32.1 - gm/dL No No Jun 28 cyte 35.3 informa informa 2017 mean tion in tion in 3:08 PM corpusc source source ular data data hemoglo bin concent ration [Mass/v olume] by Automat ed count Erythro 14.3 11.5 - % No No Jun 28 cyte 15.0 informa informa 2017 distrib tion in tion in 3:08 PM ution source source width data data [Ratio] by Automat ed count Platele 203 144 - x10(3)/ No No Jun 28 ts 423 mcL informa informa 2017 [#/volu tion in tion in 3:08 PM me] in source source Blood data data by Automat ed count MPV 9.3 6.8 - fL No No Jun 28 10.8 informa informa 2017 tion in tion in 3:08 PM source source data data Auto Diff Observa Value Referen Units Interpr Notes Date tion ce etation Range Neutrop 47.6 No % No No Jun 28 hils informa informa informa 2016 [#/volu tion in tion in tion in 3:08 PM me] in source source source Blood data data data by Automat ed count Lymphoc 34.9 No % No No Jun 28 ytes informa informa informa 2016 [#/volu tion in tion in tion in 3:08 PM me] in source source source Blood data data data by Automat ed count Monocyt 10.0 No % No No Jun 28 es informa informa informa 2017 [#/volu tion in tion in tion in 3:08 PM me] in source source source Blood data data data by Automat ed count Eos 6.3 No % No No Jun 11 Percent informa informa informa 2017 tion in tion in tion in 3:08 PM source source source data data data Baso 1.2 No % No No Jun 11 Percent informa informa informa 2017 tion in tion in tion in 3:08 PM source source source data data data Neut# 2.9 1.8 - x10(3)/ No No Jun 11 7.7 mcL informa informa 2017 tion in tion in 3:08 PM source source data data Lymph# 2.1 0.6 - x10(3)/ No No Jun 11 4.8 mcL informa informa 2017 tion in tion in 3:08 PM source source data data Rhea# 0.6 0.0 - x10(3)/ No No Jun 11 1.3 mcL informa informa 2017 tion in tion in 3:08 PM source source data data Eos# 0.4 0.0 - x10(3)/ No No Jun 11 0.5 mcL informa informa 2017 tion in tion in 3:08 PM source source data data Baso# 0.1 0.0 - x10(3)/ No No Jun 11 0.2 mcL informa informa 2017 tion in tion in 3:08 PM source source data data XR LUMBAR SPINE AP AND LATERAL Observa Value Referen Units Interpr Notes Date ti ce etation Range \.br\XR No No No No Jan 13 LUMBAR informa informa informa informa 2014 SPINE tion in tion in tion in tion in 1:25 PM AP AND source source source source LATERAL data data data data \.br\\. br\CLIN ICAL HISTORY : M54.5-L ow back pain-IC D-10-CM \.br\\. br\COMP ARISON: January 07, 2012\.b r\\.br\ No signifi cant osseous abnorma lity. No acute fractur e or disloca tion. No\.br\ destruc tive lesions . Soft tissue and fat planes preserv ed.\.br \\.br\I MPRESSI ON:\.br \1. No acute osseous abnorma lity.\. br\ XR ANKLE LEFT AP LATERAL AND OBLIQUE Observa Value Referen Units Interpr Notes Date ti ce etation Range XR No No No No July 2 ANKLE informa informa informa informa 2014 LEFT AP tion in tion in tion in tion in 10:04 source source source source AM LATERAL data data data data AND OBLIQUE July 19, 2014 10:05:3 9 AM\.br\ \.br\HI STORY: [Pain ]\.br\\ .br\DONTE HNIQUE: [3 views ]\.br\\ .br\COM PARISON : [None ]\.br\\ .br\FIN DINGS:\ .br\\.b r\Promi nent soft tissue swellin g over the anterio r and lateral aspect of the\.br \ankle without \.br\un derlyin g acute fractur e. Well-co rticate d ossific ation adjacen t to the\.br \latera l process of the\.br \talus either congeni portia or related to remote trauma. The ankle mortise is\.br\ symmetr ic. Mild\.b r\anter ior tibial spurrin g is noted.\ .br\\.b r\IMPRE SSION:\ .br\\.b r\Promi nent soft tissue swellin g overlyi ng the lateral ankle without \.br\un derlyin g acute\. br\abno rmality . Hpylori Ab Observa Value Referen Units Interpr Notes Date tion ce etation Range H 0.28 No Index_V No I.V. = Mar 04 pylori informa alue informa Index 2014 IgG tion in tion in Value\. 9:49 AM source source br\\.br data data \I.V. < 0.90 No detecta ble IgG antibod ies to H. Pylori\ .br\\.b r\I.V. 0.90 - 1.09 Equivoc al for IgG antibod ies to H. Pylori. \.br\ Re-test ing a new specime n is recomme nded.\. br\\.br \I.V. >= 1.10 H. Pylori IgG antibod y detecte d. LDL Observa Value Referen Units Interpr Notes Date ti ce etation Range LDL 102 <=100 mg/dL High < 100 Feb 27 Calcula 2013 rashard 5:02 PM Optimal \.br\10 0 - 129 Near or above optimal \.br\13 0 - 159 Borderl ine High\.b r\160 - 189 High\.b r\ >= 190 Very High Lipid Refx Observa Value Referen Units Interpr Notes Date tion ce etation Range Cholest 164 <=200 mg/dL No < 200 Feb 27 zach informa 2013 [Percen tion in 5:02 PM tile] source Desirab data le\.br\ 200 - 239 Borderl ine High\.b r\>= 240 High TRIGLYC 157 <=150 mg/dL High < 150 Feb 27 ERIDES. 2014 TOTAL Normal\ 5:02 PM .br\150 - 199 Borderl ine High\.b r\200 - 499 High\.b r\ >= 500 Very High CHOLEST 31 >=40 mg/dL Low > 60 Feb 27 EROLS.I 2013 N HDL Optimal 5:02 PM \.br\40 - 60 Accepta ble\.br \ < 40 Low Lipase Observa Value Referen Units Interpr Notes Date tion ce etation Range Lipase 18 13 - 60 IU/L No New Feb 27 Lvl informa referen 2014 tion in ce 5:02 PM source range data is signifi cantly differe nt from previou s. Amylase Observa Value Referen Units Interpr Notes Date tion ce etation Range AMYLASE 35 28 - IU/L No No Feb 27 .TOTAL 100 informa informa 2014 tion in tion in 5:02 PM source source data data Hemogram Observa Value Referen Units Interpr Notes Date tion ce etation Range LEUKOCY 6.5 4.0 - x10(3)/ No No Feb 27 ELIF 11.0 mcL informa informa 2013 tion in tion in 4:46 PM source source data data Erythro 5.41 4.30 - x10(6)/ No No Feb 27 cytes 5.81 mcL informa informa 2013 [#/volu tion in tion in 4:46 PM me] in source source Blood data data by Automat ed count Hemoglo 15.7 13.5 - gm/dL No Feb 27 bin 17.1 informa informa 2013 [Mass/v tion in tion in 4:46 PM olume] source source in data data Blood Hematoc 47.5 38.9 - % No Feb 27 rit 51.6 informa informa 2013 [Volume tion in tion in 4:46 PM source source Fractio data data n] of Blood by Automat ed count Erythro 87.8 82.5 - fL No Feb 27 cyte 99.8 informa informa 2013 mean tion in tion in 4:46 PM corpusc source source ular data data volume [Entiti c volume] by Automat ed count Erythro 29.0 27.0 - pg No Feb 27 cyte 34.3 informa informa 2013 mean tion in tion in 4:46 PM corpusc source source ular data data hemoglo bin [Entiti c mass] by Automat ed count Erythro 33.0 32.1 - gm/dL No Feb 27 cyte 35.3 informa informa 2013 mean tion in tion in 4:46 PM corpusc source source ular data data hemoglo bin concent ration [Mass/v olume] by Automat ed count Erythro 14.0 11.5 - % No Feb 27 cyte 15.0 informa informa 2013 distrib tion in tion in 4:46 PM ution source source width data data [Ratio] by Automat ed count Platele 225 144 - x10(3)/ No Feb 27 ts 423 mcL informa informa 2013 [#/volu tion in tion in 4:46 PM me] in source source Blood data data by Automat ed count MPV 9.5 6.8 - fL No No Feb 27 10.8 informa informa 2013 tion in tion in 4:46 PM source source data data Chl/GC Urine Results Observa Value Referen Units Interpr Notes Date tion ce etation Range C. Urine No No No Test Dec 21 trachom informa informa informa methodo 2014 atis/N. tion in tion in tion in logy is 7:53 AM source source source gonorrh data data data amplifi oeae ed DNA Specime probe n using [employer] A negativ e result does not rule out the presenc e of DNA in concent rations below\. br\the level of detecti on of the assay.\ .br\\.b r\The perform ance charact eristic s of this test were validat ed by [facility]. This laborat ory is authori derick under the Clinica l\.br\L aborato ry Improve ment Amendme nts (CLIA) as qualifi ed to perform high-co mplexit y testing . Complia nce stateme nt is availab le in the Laborat ory.\.b r\\.br\ Extract ion of genetic materia l from urine and Thin Prep samples was perform ed using a method that was develop ed and validat ed in the perform ing laborat ory. Detaile d methodo logy is availab le upon request .\.br\\ .br\In rare instanc es, non-pat hogenic strains of Neisser ia may cross react and give a false positiv e result for N. gonorrh ea. If concern ed that this cross\. br\reac tivity has occurre d, please recolle ct and submit for genital culture prior to treatme nt.\.br \\.br\T he perform ance of this test has not been verifie d in minor aged patient s. This test is indicat ed for medical purpose s only. Chlamyd Negativ No No No No Dec 21 ia e informa informa informa informa 2014 trachom tion in tion in tion in tion in 7:53 AM atis source source source source data data data data Neisser Negativ No No No No Dec 21 ia e informa informa informa informa 2014 gonorrh tion in tion in tion in tion in 7:53 AM oeae source source source source data data data data ST STRESS TEST EXERCISE Observa Value Referen Units Interpr Notes Date ti ce etation Range NORMAL No No No No Feb 08 ECG informa informa informa informa 2012 RESPONS tion in tion in tion in tion in 8:48 AM E. source source source source data data data data TSH Reflex Observa Value Referen Units Interpr Notes Date ti ce etation Range Thyrotr 1.1258 0.3500 mcIU/mL No No Feb 06 opin - informa informa 2012 [Units/ 4.9400 tion in tion in 12:09 volume] source source PM in data data Serum or Plasma Auto Diff Observa Value Referen Units Interpr Notes Date ti ce etation Range Neutrop 52.1 No % No No Feb 05 hils informa informa informa 2012 [#/volu tion in tion in tion in 7:48 PM me] in source source source Blood data data data by Automat ed count Lymphoc 34.6 No % No Feb 05 ytes informa informa informa 2012 [#/volu tion in tion in tion in 7:48 PM me] in source source source Blood data data data by Automat ed count Monocyt 6.8 No % No Feb 05 es informa informa informa 2012 [#/volu tion in tion in tion in 7:48 PM me] in source source source Blood data data data by Automat ed count Eos 5.5 No % No Feb 05 Percent informa informa informa 2012 tion in tion in tion in 7:48 PM source source source data data data Baso 1.0 No % No Feb 05 Percent informa informa informa 2012 tion in tion in tion in 7:48 PM source source source data data data Neutrop 4.3 1.8 - x10(3)/ No Feb 05 hils 7.7 mcL informa informa 2012 [#/volu tion in tion in 7:48 PM me] in source source Blood data data Lymphoc 2.8 0.6 - x10(3)/ No Feb 05 ytes 4.8 mcL informa informa 2012 [#/volu tion in tion in 7:48 PM me] in source source Blood data data Monocyt 0.6 0.0 - x10(3)/ No Feb 05 es 1.3 mcL informa informa 2012 [#/volu tion in tion in 7:48 PM me] in source source Blood data data Eosinop 0.5 0.0 - x10(3)/ No Feb 05 hils 0.5 mcL informa informa 2012 [#/volu tion in tion in 7:48 PM me] in source source Blood data data Basophi 0.1 0.0 - x10(3)/ No Feb 05 ls 0.2 mcL informa informa 2012 [#/volu tion in tion in 7:48 PM me] in source source Blood data data CBC Observa Value Referen Units Interpr Notes Date tion ce etation Range LEUKOCY 8.2 4.0 - x10(3)/ No Feb 05 ELIF 11.0 mcL informa informa 2012 tion in tion in 7:48 PM source source data data Erythro 5.67 4.30 - x10(6)/ No Feb 05 cytes 5.81 mcL informa informa 2012 [#/volu tion in tion in 7:48 PM me] in source source Blood data data by Automat ed count Hemoglo 16.0 13.5 - gm/dL No Feb 05 bin 17.1 informa informa 2012 [Mass/v tion in tion in 7:48 PM olume] source source in data data Blood Hematoc 49.0 38.9 - % No Feb 05 rit 51.6 informa informa 2012 [Volume tion in tion in 7:48 PM source source Fractio data data n] of Blood by Automat ed count Erythro 86.5 82.5 - fL No Feb 05 cyte 99.8 informa informa 2012 mean tion in tion in 7:48 PM corpusc source source ular data data volume [Entiti c volume] by Automat ed count Erythro 28.3 27.0 - pg No Feb 05 cyte 34.3 informa informa 2012 mean tion in tion in 7:48 PM corpusc source source ular data data hemoglo bin [Entiti c mass] by Automat ed count Erythro 32.8 32.1 - gm/dL No Feb 05 cyte 35.3 informa informa 2012 mean tion in tion in 7:48 PM corpusc source source ular data data hemoglo bin concent ration [Mass/v olume] by Automat ed count Erythro 14.0 11.5 - % No Feb 05 cyte 15.0 informa informa 2012 distrib tion in tion in 7:48 PM ution source source width data data [Ratio] by Automat ed count Platele 263 144 - x10(3)/ No Feb 05 ts 423 mcL informa informa 2012 [#/volu tion in tion in 7:48 PM me] in source source Blood data data by Automat ed count Platele 9.3 6.8 - fL No Feb 05 t mean 10.8 informa informa 2012 volume tion in tion in 7:48 PM [Entiti source source c data data volume] in Blood Testost Observa Value Referen Units Interpr Notes Date tion ce etation Range Testost 217 300 - ng/dL Low Feb 05 erone 1080 Note: 2012 [Mass/v Referen 6:54 PM olume] ce in range Serum based or on 8:00 Plasma AM standar d. Lipid Scr Observa Value Referen Units Interpr Notes Date tion ce etation Range Cholest 190 <=200 mg/dL No < 200 Feb 05 zach informa 2012 [Percen tion in 6:37 PM tile] source Desirab data le\.br\ 200 - 239 Borderl ine High\.b r\>= 240 High TRIGLYC 135 <=150 mg/dL No < 150 Feb 05 ERIDES. informa 2013 TOTAL tion in Normal\ 6:37 PM source .br\150 data - 199 Borderl ine High\.b r\200 - 499 High\.b r\ >= 500 Very High CHOLEST 37 >=40 mg/dL Low > 60 Feb 05 EROLS.I 2012 N HDL Optimal 6:37 PM \.br\40 - 60 Accepta ble\.br \ < 40 Low Cholest 126 <=100 mg/dL High < 100 Feb 05 zach in 2012 LDL 6:37 PM [Mass/v Optimal olume] \.br\10 in 0 - 129 Serum or Near or Plasma above by optimal calcula \.br\13 tion 0 - 159 Borderl ine High\.b r\160 - 189 High\.b r\ >= 190 Very High XR LUMBAR SPINE AP AND LATERAL Observa Value Referen Units Interpr Notes Date tion ce etation Range TEXT XR No No No No Nov 06 DIAGNOS LUMBAR informa informa informa informa 2011 IS SPINE tion in tion in tion in tion in 6:58 PM BATTERY AP AND source source source source LATERAL data data data data Nov 07, 2011 06:59:0 5 PMHISTO RY: Injury and PainNo osseous , soft tissue, joint space abnorma lity seen.Im pressio n: Negativ e exam.
--- OUTSIDE RECORDS SUMMARY | 2016-08-02 08:59 | External Medical Summary Rpt ---
[...] in 3:08 PM source source data data Castro# 0.6 0.0 - x10(3)/ No No Jun [...] oeae ed DNA Specime probe n using [employer] A negativ e result does not rule out the presenc e of DNA in concent rations below\. br\the level of detecti on of the assay.\ .br\\.b r\The perform ance charact eristic s of this test were validat ed by [facility] or[facility]. This laborat ory is [...]
--- OUTSIDE RECORDS SUMMARY | 2016-08-02 08:59 | External Medical Summary Rpt ---
Demographics Preferred Language Sami Marital Status Unknown Sikh Affiliation Unknown Race Unknown Ethnic Group Unknown Author Author , Organization [employer] Address Unknown Phone Unavailable Purpose Continuity of Care Document - through 2016 Immunization No patient found.
[2016-08-02] MEDS ORDERED: NORCO 325 MG-51 TAB PO (09:11)
[2016-08-02] MEDS ORDERED: IBUPROFEN800 MG PO (09:11)
[2016-08-02 09:32] VITALS: BP 123/80
--- NOTE | 2016-08-02 10:04 | RADIOLOGY REPORT PS360 ---
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 Please correlate clinically. No definite fracture or dislocation. Mild soft tissue swelling laterally. IMPRESSION: Probable accessory center of ossification distal to the tip of the lateral malleolus. Please correlate clinically in regards to the possibility of an avulsion fracture. Mild soft tissue swelling laterally.
--- NOTE | 2016-08-02 10:04 | RADIOLOGY REPORT PS360 ---
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 Please correlate clinically. No definite fracture or dislocation. Mild soft tissue swelling laterally. IMPRESSION: Probable accessory center of ossification distal to the tip of the lateral malleolus. Please correlate clinically in regards to the possibility of an avulsion fracture. Mild soft tissue swelling laterally.
== END 2016-08-02 09:32 | disposition home or self-care (01) ==
LOC: ER 08:32
PROC: 2W3TX1Z Immobilization of Left Foot using Splint (ICD-10-PCS; principal; 2016-08-02)
DX: S93.402A Sprain of unspecified ligament of left ankle, initial encounter (principal); Z72.0 Tobacco use; W17.2XXA Fall into hole, initial encounter; Y92.009 Unspecified place in unspecified non-institutional (private) residence as the place of occurrence of the external cause

== ENCOUNTER 2017-01-01 11:20 | Emergency (ER) | payer MEDICAID ==
[~2017-01-01] VITALS: Ht 177.8 cm; Wt 90.7 kg
[~2017-01-01 11:20] MED LIST changes: +IBUPROFEN800 MG PO; +NORCO 325 MG-51 TAB PO; +PAROXETINE HCL20 MG NG
--- OUTSIDE RECORDS SUMMARY | 2017-01-01 11:26 | External Medical Summary Rpt | CCD ---
Author Author , JAIRO Organization JAIRO Address Unknown Phone [email or web address] Care Team Providers Care Rn Anesthetist Name Role Phone JAMAR RAMACHANDRAN, JAMAR RAMACHANDRAN Unavailable Unavailable JAMAR RAMACHANDRAN, JAMAR DUARTE Unavailable Unavailable [employer] Unavailable Unavailable INC, [employer] PEREZ, PEREZ Unavailable Unavailable [facility] Unavailable Unavailable [facility] Unavailable Unavailable PHYSICIANS, [facility] [place] Unavailable [facility] GABRIELA PADMINI, GABRIELA Unavailable Unavailable PADMINI WATTS, WATTS Unavailable Unavailable [facility] Unavailable Unavailable INC, [facility] Unavailable Unavailable HOSPITAL, [facility] Unavailable Unavailable HOSPITAL P, [facility], Unavailable Unavailable [facility] EDUAR LAR, EDUAR Unavailable Unavailable [facility] Unavailable Unavailable IMAGING [facility], [facility] CAROLA JR DWI, CAROLA Unavailable Unavailable JR DWI PETR TRAE, PETR Unavailable Unavailable TRAE [facility], Unavailable Unavailable PLLC, [facility] Unavailable Unavailable OF NOT, [facility] RENUSCH, RENUSCH Unavailable Unavailable SOTINGEANU, Unavailable Unavailable SOTINGEANU [facility] Unavailable Unavailable CODE MACHINE OPERATOR ST, [facility] CODE MACHINE OPERATOR ST [facility] Unavailable Unavailable [facility]IANS, [facility] REMYSUZAN CALDERON, Unavailable Unavailable [facility] STERNEBERG GEORGE, Unavailable Unavailable STERNEBERG GEORGE STEFANI SCO, STEFANI SCO Unavailable Unavailable CRYSTAL, CRYSTAL Unavailable Unavailable Purpose Continuity of Care Document - 11-07-2011 through 2016 Problems Code Diagnosis DOS Provider Status [id number] PAIN IN 09-14-2016 [place] LEFT CHIROPRACTI SHOULDER C CENTE M546 PAIN IN 09-14-2016 [place] THORACIC CHIROPRACTI SPINE C CENTE M9902 SEGMENTAL & 09-14-2016 [place] SOMATIC CHIROPRACTI DYSFUNCTION C CENTE THORACIC REGION M9907 SEGMENTAL & 09-14-2016 [place] SOMATIC CHIROPRACTI DYSFUNCTION C CENTJessa UPPER EXTREMITY J76140 PAIN IN 08-02-2016 [place] LEFT [facility]KLE [facility]ICAL IMAGING ASS M7989 OTHER 08-02-2016 [place] SPECIFIED MEDICAL SOFT TISSUE IMAGING ASS DISORDERS [id number] SPRAIN UNS 08-02-2016 [facility], LEFT ANKLE PLLC INITIAL ENCOUNTER [id number] UNSPECIFIED 08-02-2016 [place] INJURY MEDICAL LEFT ANKLE IMAGING ASS INITIAL ENCOUNTER Z720 TOBACCO USE 08-02-2016 [facility] INC I889 NONSPECIFIC 05-23-2016 [facility] LYMPHADENIT INC IS UNSPECIFIED J0100 ACUTE 03-17-2016 [facility] MAXILLARY PHYSICIAN SINUSITIS GROUP UNSPECIFIED K6289 OTHER 12-30-2015 ROLDAN DUARTE SPECIFIED DISEASES OF ANUS AND RECTUM K645 PERIANAL 12-30-2015 [facility] DUARTE VENOUS THROMBOSIS J00 ACUTE 11-07-2015 [facility] NASOPHARYNG PHYSICIAN ITIS COMMON GROUP COLD J029 ACUTE 11-07-2015 [facility] PHARYNGITIS PHYSICIAN GROUP UNSPECIFIED R05 COUGH 11-07-2015 [facility] K122 CELLULITIS 08-25-2015 ST AND ABSCESS [facility] OF MOUTH PHYSICIANS Z6830 BODY MASS 08-25-2015 ST INDEX BMI REMY 30.0-30.9 PHYSICIANS ADULT X44808 ACUTE 05-27-2015 [place] SUPPURATIVE [facility] W/O HOSPITAL RUPT EAR DRUM UNS EAR J0190 ACUTE 05-27-2015 [place] [facility] B349 VIRAL 02-10-2015 [facility] INFECTION [facility], UNSPECIFIED PLLC J209 ACUTE 02-10-2015 [facility] BRONCHITIS PHYSICIANS, UNSPECIFIED PLLC J449 CHRONIC 02-10-2015 [facility] PULMONARY [facility] P DISEASE UNS R0602 SHORTNESS 02-10-2015 [place] OF [facility] IMAGING ASS R079 CHEST PAIN 02-10-2015 [facility] R918 OTHER 02-10-2015 [place] NONSPECIFIC MEDICAL ABNORMAL IMAGING ASS FINDING OF LUNG FIELD M545 LOW BACK 01-13-2015 ST. PAIN REMY YUMIKO 9057 LATE EFF 07-21-2014 ST SPRAIN&STRA REMY IN W/O PHYSICIANS MENTION TENDON INJURY 04547 PAIN IN 07-19-2014 RADIOLOGY JOINT, ASSOCIATES ANKLE AND OF [facility] FOOT 79270 SWELLING OF 07-19-2014 [facility] LIMB [facility] OF [facility] 55880 UNSPECIFIED 07-19-2014 [facility] ANKLE PHYSICIANS SPRAIN AND STRAIN 48933 UNSPECIFIED 12-18-2013 [facility] CTR CODE MACHINE OPERATOR ST 7881 DYSURIA 12-18-2013 [facility] CTR CODE MACHINE OPERATOR ST F41.9 Anxiety disorder, unspecified G47.00 Insomnia, unspecified R05 Cough R53.83 Other fatigue Medications Na ND Rx Da Fi Fi Am Da Di Ph RX Ph St me C No te ll ll ou ys ag ar # ys at rm s nt no ma ic us Or Da si cy ia de te s n re d VE 00 08 09 30 30 00 KE Ac NL 09 -2 -2 .0 00 NT ti AF 37 8- 2- 00 00 UC ve AX 38 20 20 91 [place] IN 59 17 17 15 E 8 76 CV HC S L PH ER AR MA 75 CY MG LL C, CA P DB A CV S PH AR MA CY #0 54 37 [place] 59 08 09 6. 5 00 KE Ac IT 76 -2 -2 00 00 NT ti HR 23 8- 2- 0 00 UC ve OM 06 20 20 91 [place] YC 00 17 17 15 IN 1 77 CV S 25 PH 0 AR MG MA CY TA BL LL ET C, DB A CV S PH AR MA CY #0 54 37 DO 00 06 07 30 30 00 KE Ac XE 37 -1 -0 .0 00 NT ti PI 83 3- 7- 00 00 UC ve N 12 20 20 89 [place] 25 50 17 17 70 1 66 CV MG S PH CA AR PS MA UL CY E LL C, DB A CV S PH AR MA CY #0 54 37 PA 68 05 06 30 30 00 RI Ac RO 38 -1 -0 .0 00 TE ti XE 20 5- 9- 00 01 ve TI 09 20 20 17 AI NE 80 17 17 94 D 1 25 PH HC AR L MA 20 CY MG #3 93 TA 8 BL ET IB 67 05 06 15 5 00 RI Ac UP 87 -1 -0 .0 00 TE ti RO 70 6- 9- 00 01 ve FE 32 20 20 18 AI N 10 17 17 41 D 80 5 16 PH 0 AR MG MA CY TA BL #3 ET 93 8 HY 00 05 06 6. [address] 40 -1 -0 00 00 TE ti OC 60 6- 9- 0 01 ve OD 12 20 20 18 AI ON 30 17 17 41 D -A 1 24 PH CE AR TA MA WI CY NO PH #3 EN 93 8 5- 32 5 HY 00 05 05 [address] 40 -0 -2 .0 00 TE ti OC 60 4- 6- 00 01 ve OD 12 20 20 18 AI ON 40 17 17 26 D -A 1 46 PH CE AR TA MA WI CY NO PH #3 93 7. 8 5- 32 5 LI 50 05 05 10 4 00 RI Ac DO 38 -0 -2 0. 00 TE ti CA 30 4- 6- 00 01 ve IN 77 20 20 0 18 AI E 50 17 17 26 D 2% 4 47 PH AR MA SC CY OU S #[address] 8 BE 67 04 05 30 10 00 [...] CA #3 PS 93 UL 8 E [place] 65 02 03 15 3 00 RI [...] YL 15 4- 0- 00 01 ve [place] 02 20 20 17 AI ED 20 [...] 1 34 PH CE AR TA MA [place] CY NO PH #3 EN 93 8 [...] Procedures Procedure DOS Code Location Performer Comment CHIROPRAC 51918 RADHATHIJUDITH CRYSTAL TIC 7 MANIPLTV CHIROPRAC TX TIC CENTE EXTRASPIN AL 1/> REGION APPL 81867 [place] CRYSTAL MODALITY 7 1/> AREAS CHIROPRAC ELEC TIC CENTE STIMJ UNATTENDE D CHIROPRAC 06992 [place] CRYSTAL TIC 7 MANIPULAT CHIROPRAC MOHINI TX TIC CENTE SPINAL 1-2 REGIONS APPL 97635 [place] CRYSTAL MODALITY 7 1/> AREAS CHIROPRAC TIC CENTE ULTRASOUN D EA [address] [place] [address] [place] CRYSTAL 1/> AREAS 7 EACH 15 CHIROPRAC MIN [place] [address] [place] CRYSTAL 1/> AREAS 7 EACH 15 CHIROPRAC MIN TIC CENTE NEUROMUSC REEDUCA APPL 57708 KISHOR CRYSTAL MODALITY 7 1/> AREAS CHIROPRAC TIC CENTE ULTRASOUN D EA 15 MIN CHIROPRAC 04676 [place] CRYSTAL TIC 7 MANIPULAT CHIROPRAC MOHINI TX TIC CENTE SPINAL 1-2 REGIONS CHIROPRAC 06343 KISHOR CRYSTAL TIC 7 MANIPLTV CHIROPRAC TX TIC CENTE EXTRASPIN AL 1/> REGION RADEX 00471 [place] PEREZ ANKLE 7 MEDICAL COMPLETE IMAGING MINIMUM 3 ASS VIEWS CRTCHS E0114 ADVANCED ADVANCED UNDARM 7 TECHNOLOG TECHNOLOG OTH THAN IES INC IES INC WOOD PAIR PAD TIP&HNDGR IP WALKING L4360 ADVANCED ADVANCED BOOT 7 TECHNOLOG TECHNOLOG PNEUMATC IES INC IES INC &/ VACUUM PREFAB CUSTM FIT IAADIADOO 19156 PETR 6 [facility] [place] [address] [facility] PACK[facility] TROPONIN 5 [facility] QUANTITAT INC INC MOHINI BLOOD 56354 [facility] COUNT 5 [facility] COMPLETE INC INC AUTO&AUTO DIFRNTL WBC CREATINE 28412 [facility] PACKER KINASE MB 5 [facility] FRACTION INC INC ONLY RADIOLOGI 60765 [facility] PACKER C EXAM 5 [facility] CHEST 2 INC INC VIEWS FRONTAL&L ATERAL ECG 11404 [facility] SRIVASTAVA JR ROUTINE 5 [facility] W/LEAST P 12 LDS I&[place] [address] [facility] PACKER INFUSION 5 [facility] THERAPY/P INC INC ROPHYLAXI S /DX 1ST TO 1 HR THERAPEUT 22178 [facility] PACKER IC 5 [facility] INJECTION INC INC IV PUSH EACH NEW DRUG INJECTION J2405 [facility] PACKER 5 [facility] ONDANSETR INC INC ON HCL PER 1 MG ECG 02445 [facility] PACKER ROUTINE 5 [facility] ECG INC INC W/LEAST 12 LDS TRCG ONLY W/O I&R IMMUNOASS 54352 [facility] PACKER AY NFCT 5 [facility] AGT ANTB INC INC QUAL/SEMI AVIVA 1 STEP CREATINE 50430 [facility] PACKER KINASE 5 [facility] TOTAL INC INC FIBRIN 43381 [facility] PACKER DGRADJ 5 [facility] PRODUCTS INC INC D-DIMER QUAL/SEMI AVIVA COMPREHEN 06826 [facility] PACKER SIVE 5 [facility] METABOLIC INC INC PANEL THERAPEUT 55374 ST STERNEBER IC 5 REMY G GEORGE PROPHYLAC TIC/DX PHYSICIAN INJECTION S SUBQ/IM RADEX [address] SPINE 5 REMY ALBERTO LUMBOSACR YUMIKO YUMIKO AL 2/[address] IN[address] STERNEBER 5 REMY Sanchez GEORGE METHYLPRE DNISOLONE PHYSICIAN ACETATE S 80 MG CRTCHS E0114 ADVANCED ADVANCED UNDARM 5 TECHNOLOG TECHNOLOG OTH THAN IES INC IES INC WOOD PAIR PAD TIP&HNDGR IP RADEX 10921 RADIOLOGY STEFANI SCO ANKLE 5 COMPLETE ASSOCIATE MINIMUM 3 S OF NOTH VIEWS ANKLE L4350 ADVANCED ADVANCED CONTROL 5 TECHNOLOG TECHNOLOG ORTHOSIS IES INC IES INC STIRRUP STYL RIGID PREFAB IADNA [address] CHLAMYDIA 4 [facility] CTR MED CTR TRACHOMAT CODE MACHINE OPERATOR ST CODE MACHINE OPERATOR ST IS AMPLIFIED PROBE TQ IADNA [address] NEISSERIA 4 [facility] CTR MED CTR GONORRHOE CODE MACHINE OPERATOR ST CODE MACHINE OPERATOR ST AE AMPLIFIED PROBE TQ Encounters Encounter Start End Date Code Location Performer Type Date OFFICE 11843 KISHOR CRYSTAL OUTPATIEN 7 7 T NEW 30 CHIROPRAC MINUTES TIC CENTE EMERGENCY 92844 [facility] 7 7 [facility] DEPARTMEN INC T VISIT MODERATE SEVERITY HOSPITAL [facility] - 7 7 [facility] OUTPATIEN INC T EMERGENCY 34864 [facility] ORTIZ 7 7 PHYS[facility] H[facility]URGE NT SEVERITY [facility]OSPITAL [facility] - 7 7 [facility] OUTPATIEN INC T OFFICE 53544 [facility] OUTPATIEN 7 7 [facility] T VISIT 5 INC MINUTES OFFICE 35882 [facility] ART OUTPATIEN 6 6 PHYSICIAN T VISIT GROUP 15 MINUTES OFFICE 14735 ROLDAN DUARTE RAMACHANDRAN OUTPATIEN 6 6 T NEW 30 MINUTES OFFICE 38373 [facility] WATTS OUTPATIEN 6 6 PHYSICIAN T VISIT GROUP [address] [facility] OUTPATIEN 6 6 REMY TRAE T VISIT 15 PHYSICIAN MINUTES S OFFICE 33723 [facility] OUTPATIEN 6 6 [facility] VISIT HOSPITAL 15 MINUTES OFFICE 34833 [facility] GABRIELA OUTPATIEN 5 5 [facility] 20 [facility] MINUTES EMERGENCY 36635 [facility]ICIAN U VISIT S, [facility] HIGH SEVERITY& THREAT [facility]CHOA - 5 5 [facility] OUTPATIEN INC T HOSPITAL ST. - 5 5 REMY OUTPATIEN YUMIKO T OFFICE [address] [facility] OUTPATIEN 5 5 REMY TRAE T VISIT 15 PHYSICIAN MINUTES S EMERGENCY 43637 JOSÉ MANUEL WITT 5 5 EMERGENCY LAR DEPARTMEN T VISIT PHYSICIAN HIGH/URGE S NT SEVERITY HOSPITAL ST - 4 4 [facility] OUTPATIEN MED CTR T CODE MACHINE OPERATOR ST
--- OUTSIDE RECORDS SUMMARY | 2017-01-01 11:26 | External Medical Summary Rpt | CCD ---
Author Author , JAIRO Organization JAIRO Address Unknown Phone [email or web address] Care Team Providers Care Varnisher Plasticoater Name Role Phone JAMAR RAMACHANDRAN, JAMAR RAMACHANDRAN Unavailable Unavailable JAMAR RAMACHANDRAN, JAMAR DUARTE Unavailable Unavailable [employer] Unavailable Unavailable INC, [employer] PEREZ, PEREZ Unavailable Unavailable [facility] Unavailable Unavailable [facility] Unavailable Unavailable PHYSICIANS, [facility] [place] Unavailable Unavailable [facility] GABRIELA PADMINI, GABRIELA Unavailable Unavailable PADMINI WATTS, WATTS Unavailable Unavailable [facility] Unavailable Unavailable INC, [facility] Unavailable Unavailable [facility]PITAL, [facility] Unavailable Unavailable HOSPITAL P, [facility], Unavailable Unavailable [facility] EDUAR LAR, EDUAR Unavailable Unavailable [facility] Unavailable Unavailable IM[facility]ING [facility], [facility] CAROLA JR DWI, CAROLA Unavailable Unavailable JR DWI PETR TRAE, PETR Unavailable Unavailable TRAE [facility], Unavailable Unavailable PLLC, [facility] Unavailable Unavailable OF NOT, [facility] RENUSCH, RENUSCH Unavailable Unavailable SOTINGEANU, Unavailable Unavailable SOTINGEANU [facility] Unavailable Unavailable SUPERVISOR [employer] [facility], [facility] SUPERVISOR [employer] [facility] Unavailable Unavailable PHYSICIANS, [facility] REMYSUZAN CALDERON, Unavailable Unavailable [facility] YUMIKO STERNEBERG GEORGE, Unavailable Unavailable STERNEBERG GEORGE STEFANI SCO, STEFANI SCO Unavailable Unavailable CRYSTAL, CRYSTAL Unavailable Unavailable Purpose Continuity of Care Document - 11-07-2011 through 2016 Problems Code Diagnosis DOS Provider Status [id number] PAIN IN 09-14-2016 [place] LEFT CHIROPRACTI SHOULDER C CENTE M546 PAIN IN 09-14-2016 [place] THORACIC CHIROPRACTI SPINE C CENTE M9902 SEGMENTAL & 09-14-2016 [place] SOMATIC CHIROPRACTI DYSFUNCTION C CENTE THORACIC REGION M9907 SEGMENTAL & 09-14-2016 [place] SOMATIC CHIROPRACTI DYSFUNCTION C CENTJessa UPPER EXTREMITY R88283 PAIN IN 08-02-2016 [place] LEFT ANKLE MEDICAL IMAGING ASS M7989 OTHER 08-02-2016 [place] SPECIFIED MEDICAL SOFT TISSUE IMAGING ASS DISORDERS [id number] SPRAIN UNS 08-02-2016 [facility], LEFT ANKLE PLLC INITIAL ENCOUNTER [id number] UNSPECIFIED 08-02-2016 [place] INJURY MEDICAL LEFT ANKLE IMAGING ASS INITIAL ENCOUNTER Z720 TOBACCO USE 08-02-2016 [facility] INC I889 NONSPECIFIC 05-23-2016 [facility] LYMPHADENIT INC IS UNSPECIFIED J0100 ACUTE 03-17-2016 [facility] MAXILLARY PHYSICIAN SINUSITIS GROUP UNSPECIFIED K6289 OTHER 12-30-2015 ROLDAN DUARTE SPECIFIED DISEASES OF ANUS AND RECTUM K645 PERIANAL 12-30-2015 ROLDAN DUARTE VENOUS THROMBOSIS J00 ACUTE 11-07-2015 [facility] NASOPHARYNG PHYSICIAN ITIS COMMON GROUP COLD J029 ACUTE 11-07-2015 [facility] PHARYNGITIS PHYSICIAN GROUP UNSPECIFIED R05 COUGH 11-07-2015 [facility] PHYSICIAN GROUP K122 CELLULITIS 08-25-2015 ST AND ABSCESS [facility] OF MOUTH PHYSICIANS Z6830 BODY MASS 08-25-2015 ST INDEX BMI REMY 30.0-30.9 PHYSICIANS ADULT S05141 ACUTE 05-27-2015 [place] SUPPURATIVE [facility]O HOSPITAL RUPT EAR DRUM UNS EAR J0190 ACUTE 05-27-2015 [place] [facility] B349 VIRAL 02-10-2015 [facility] INFECTION [facility], UNSPECIFIED PLLC J209 ACUTE 02-10-2015 [facility] BRONCHITIS PHYSICIANS, UNSPECIFIED PLLC J449 CHRONIC 02-10-2015 [facility] PULMONARY [facility] P DISEASE UNS R0602 SHORTNESS 02-10-2015 [place] OF [facility]ICAL IMAGING ASS R079 CHEST PAIN 02-10-2015 [facility] R918 OTHER 02-10-2015 [place] NONSPECIFIC MEDICAL ABNORMAL IMAGING ASS FINDING OF LUNG FIELD M545 LOW BACK 01-13-2015 ST. PAIN REMY YUMIKO 9057 LATE EFF 07-21-2014 ST SPRAIN&STRA REMY IN W/O PHYSICIANS MENTION TENDON INJURY 57198 PAIN IN 07-19-2014 [facility] JOINT, ASSOCIATES ANKLE AND OF [facility] FOOT 30171 SWELLING OF 07-19-2014 [facility] 14921 UNSPECIFIED 07-19-2014 [facility] EMERGENCY ANKLE PHYSICIANS SPRAIN AND STRAIN 97682 UNSPECIFIED 12-18-2013 [facility] CTR SUPERVISOR [employer] [facility] 7881 DYSURIA 12-18-2013 [facility] SUPERVISOR [employer] [facility] F41.9 Anxiety disorder, unspecified G47.00 Insomnia, [...] 1 24 PH CE AR TA MA NV CY NO PH #3 EN 93 8 5- 32 5 HY 00 05 05 [address] 40 -0 -2 .0 00 TE ti OC 60 4- 6- 00 01 ve OD 12 20 20 18 AI ON 40 17 17 26 D -A 1 46 PH CE AR TA MA NV CY NO PH #3 93 7. 8 [...] CA #3 PS 93 UL 8 E WV 65 02 03 15 3 00 RI [...] YL 15 4- 0- 00 01 ve WV 02 20 20 17 AI ED 20 [...] 1 34 PH CE AR TA MA NV CY NO PH #3 EN 93 8 [...] Procedure DOS Code Location Performer Comment CHIROPRAC 11712 RADHATHIJUDITH CRYSTAL TIC 7 MANIPLTV CHIROPRAC TX TIC CENTE EXTRASPIN AL 1/> REGION APPL 59285 [place] CRYSTAL MODALITY 7 1/> AREAS CHIROPRAC ELEC TIC CENTE STIMJ UNATTENDE D CHIROPRAC 96226 [place] CRYSTAL TIC 7 MANIPULAT CHIROPRAC MOHINI TX TIC CENTE SPINAL 1-2 REGIONS APPL 85030 BRITTANYANA CRYSTAL MODALITY 7 1/> AREAS CHIROPRAC TIC CENTE ULTRASOUN D EA [address] [place] [address] [place] CRYSTAL 1/> AREAS 7 EACH 15 CHIROPRAC MIN [place] [address] [place] CRYSTAL 1/> AREAS 7 EACH 15 CHIROPRAC MIN TIC CENTE NEUROMUSC REEDUCA APPL 34726 KISHOR CRYSTAL MODALITY 7 1/> AREAS CHIROPRAC TIC CENTE ULTRASOUN D EA 15 MIN CHIROPRAC 01224 [place] CRYSTAL TIC 7 MANIPULAT CHIROPRAC MOHINI TX TIC CENTE SPINAL 1-2 REGIONS CHIROPRAC 70656 KISHOR CRYSTAL TIC 7 MANIPLTV CHIROPRAC TX TIC CENTE EXTRASPIN AL 1/> REGION RADEX 63325 [place] PEREZ ANKLE 7 MEDICAL COMPLETE IMAGING MINIMUM 3 ASS VIEWS CRTCHS E0114 ADVANCED ADVANCED UNDARM 7 TECHNOLOG TECHNOLOG OTH THAN IES INC IES INC WOOD PAIR PAD TIP&HNDGR IP WALKING L4360 ADVANCED ADVANCED BOOT 7 TECHNOLOG TECHNOLOG PNEUMATC IES INC IES INC &/ VACUUM PREFAB CUSTM FIT IAADIADOO 12569 PETR 6 [facility] [place] [address] [facility] PACKER TROPONIN 5 [facility] QUANTITAT INC INC MOHINI BLOOD 45130 [facility] PACKER COUNT 5 [facility] COMPLETE INC INC AUTO&AUTO DIFRNTL WBC CREATINE 84615 [facility] PACKER KINASE MB 5 [facility] FRACTION INC INC ONLY RADIOLOGI 19061 [facility] PACKER C EXAM 5 [facility] CHEST 2 INC INC VIEWS FRONTAL&L ATERAL ECG 67803 [facility] SRIVASTAVA JR ROUTINE 5 [facility] W/LEAST P 12 LDS I&[place] [address] [facility] PACKER INFUSION 5 [facility] THERAPY/P INC INC ROPHYLAXI S /DX 1ST TO 1 HR THERAPEUT 62393 [facility] PACKER IC 5 [facility] INJECTION INC INC IV PUSH EACH NEW DRUG INJECTION J2405 [facility] PACKER 5 [facility] ONDANSETR INC INC ON HCL PER 1 MG ECG 35015 [facility] PACKER ROUTINE 5 [facility] ECG INC INC W/LEAST 12 LDS TRCG ONLY W/O I&R IMMUNOASS 47178 [facility] PACKER AY NFCT 5 [facility] AGT ANTB INC INC QUAL/SEMI AVIVA 1 STEP CREATINE 76319 [facility] PACKER KINASE 5 [facility] TOTAL INC INC FIBRIN 77668 [facility] PACKER DGRADJ 5 [facility] PRODUCTS INC INC D-DIMER QUAL/SEMI AVIVA COMPREHEN 43467 [facility] PACKER SIVE 5 [facility] METABOLIC INC INC PANEL THERAPEUT 70352 ST STERNEBER IC 5 REMY G GEORGE PROPHYLAC TIC/DX PHYSICIAN INJECTION S SUBQ/IM RADEX [address] SPINE 5 REMY ALBERTO LUMBOSACR YUMIKO YUMIKO AL 2/[address] IN[address] STERNEBER 5 REMY Sanchez GEORGE METHYLPRE DNISOLONE PHYSICIAN ACETATE S 80 MG CRTCHS E0114 ADVANCED ADVANCED UNDARM 5 TECHNOLOG TECHNOLOG OTH THAN IES INC IES INC WOOD PAIR PAD TIP&HNDGR IP RADEX 37477 RADIOLOGY STEFANI SCO ANKLE 5 COMPLETE ASSOCIATE MINIMUM 3 S OF NOTH VIEWS ANKLE L4350 ADVANCED ADVANCED CONTROL 5 TECHNOLOG TECHNOLOG ORTHOSIS IES INC IES INC STIRRUP STYL RIGID PREFAB IADNA [address] CHLAMYDIA 4 [facility] MED CTR TRACHOMAT SUPERVISOR BLAST [employer] ST SUPERVISOR BLAST [employer]CE [employer]IL[employer] ST IS AMPLIFIED PROBE TQ IADNA [address] NEISSERIA 4 PSYCHI[facility]RIC CTR MED CTR GONORRHOE SUPERVISOR [employer] ST SUPERVISOR [employer]IL[employer] ST AE AMPLIFIED PROBE TQ Encounters Encounter Start End Date Code Location Performer Type Date OFFICE 64083 KISHOR CRYSTAL OUTPATIEN 7 7 T NEW 30 CHIROPRAC MINUTES TIC CENTE EMERGENCY 99094 [facility] 7 7 [facility] DEPARTMEN INC T VISIT MODERATE SEVERITY HOSPITAL [facility] - 7 7 [facility] OUTPATIEN INC T EMERGENCY 16914 [facility]ER ORTIZ 7 7 [facility] H[facility]OSP[facility] - 7 7 [facility] OUTPATIEN INC T OFFICE 55339 [facility] OUTPATIEN 7 7 [facility] T VISIT 5 INC MINUTES OFFICE 64865 [facility] ART OUTPATIEN 6 6 PHYSICIAN T VISIT GROUP 15 MINUTES OFFICE [id number] ROLDAN DUARTE RAMACHANDRAN OUTPATIEN 6 6 T NEW 30 MINUTES OFFICE 83517 [facility] WATTS OUTPATIEN 6 6 PHYSICIAN T VISIT GROUP [address] [facility] OUT[facility] 6 6 [facility] TRAE T VISIT 15 PHYSICIAN MINUTES S OFFICE 59138 [facility] OUT[facility] 6 6 [facility] 15 MINUTES OFFICE 49844 [facility] GABRIELA OUTPATIEN 5 5 [facility] 20 [facility] MINUTES EMERGENCY 17499 [facility]IAN U VISIT S, [facility] HIGH SEVERITY& THREAT [facility] - 5 5 [facility] OUTPATIEN INC T [facility] - 5 5 [facility] OUTPATIEN YUMIKO T OFFICE [address] [facility] OUTPATIEN 5 5 [facility] TRAE T VISIT 15 PHYSICIAN MINUTES S EMERGENCY 81025 JOSÉ MANUEL WITT 5 5 EMERGENCY LAR DEPARTMEN T VISIT PHYSICIAN HIGH/URGE S NT SEVERITY [facility] ST - 4 4 [facility] OUTPATIEN [facility] T [employer] [facility]
--- OUTSIDE RECORDS SUMMARY | 2017-01-01 11:28 | External Medical Summary Rpt | CCD ---
Demographics Preferred Language Luxembourgish Marital Status Unknown Adventist Affiliation Unknown Race Unknown Ethnic Group Unknown Author Author , JAIRO GILL Address Unknown Phone Immunization No patient found.
--- OUTSIDE RECORDS SUMMARY | 2017-01-01 11:28 | External Medical Summary Rpt | CCD ---
Demographics Preferred Language Wolof Marital Status Unknown Orthodoxy Affiliation Unknown Race Unknown Ethnic Group Unknown Author Author , JAIRO GLIL Address Unknown Phone Immunization No patient found.
--- OUTSIDE RECORDS SUMMARY | 2017-01-01 11:28 | External Medical Summary Rpt | CCD ---
Author Author , JAIRO GILL Address Unknown Phone [email or web address] Care Team Providers Care Marketing Executive Name Role Phone JAMAR RAMACHANDRAN, JAMAR DUARTE Unavailable Unavailable JAMAR RAMACHANDRAN, JAMAR DUARTE Unavailable Unavailable [employer] Unavailable Unavailable INC, [employer] [facility] Unavailable Unavailable [facility] Unavailable Unavailable PHYSICIANS, [facility] KISHOR Unavailable Unavailable [facility] GABRIELA PADMINI, GABRIELA Unavailable Unavailable PADMINI WATTS, WATTS Unavailable Unavailable [facility] Unavailable Unavailable INC, [facility] Unavailable [facility]available HOSPITAL, [facility] Unavailable Unavailable HOSPITAL P, [facility] P [facility], Unavailable Unavailable [facility] EDUAR LAR, EDUAR Unavailable Unavailable [facility] Unavailable Unavailable [facility], [facility] CAROLA JR DWI, CAROLA Unavailable Unavailable JR DWI PETR LARKIN, PETR Unavailable Unavailable [facility], Unavailable Unavailable PLLC, [facility] Unavailable Unavailable OF NOT, [facility] RENUSCH, RENUSCH Unavailable Unavailable SOTINGEANU, Unavailable Unavailable [facility]OTINGEANU [facility] Unavailable Unavailable HEAD [facility] DRAMA [facility], [facility] Unavailable [facility]available [facility]ICIANS, [facility] CALDER[facility], Unavailable Unavailable [facility] Y[facility] STERNEBERG GEORGE, Unavailable Unavailable STERNEBERG GEORGE STEFANI SCO, STEFANI SCO Unavailable Unavailable CRYSTAL, CRYSTAL Unavailable Unavailable Purpose Continuity of Care Document - 12-18-2013 through 2016 Problems Code Diagnosis DOS Provider Status [id number] PAIN IN 09-14-2016 [place] LEFT CHIROPRACTI SHOULDER C CENTE M546 PAIN IN 09-14-2016 [place] THORACIC CHIROPRACTI SPINE C CENTE M9902 SEGMENTAL & 09-14-2016 [place] SOMATIC CHIROPRACTI DYSFUNCTION C CENTE THORACIC REGION M9907 SEGMENTAL & 09-14-2016 [place] SOMATIC [facility]IROPRA[facility]I DYSFUNCTION C CENTE UPPER EXTREMITY R03421 PAIN IN 08-02-2016 [facility] M7989 OTHER 08-02-2016 [facility] SPECIFIED MEDICAL SOFT TISSUE IMAGING ASS DISORDERS [id number] SPRAIN UNS 08-02-2016 [facility], LEFT ANKLE PLLC INITIAL ENCOUNTER [id number] UNSPECIFIED 08-02-2016 [place] INJURY MEDICAL LEFT ANKLE IMAGING ASS INITIAL ENCOUNTER Z720 TOBACCO USE 08-02-2016 [facility] I889 NONSPECIFIC 05-23-2016 [facility] LYMPHADENIT INC IS UNSPECIFIED J0100 ACUTE 03-17-2016 [facility] MAXILLARY PHYSICIAN SINUSITIS GROUP UNSPECIFIED K6289 OTHER 12-30-2015 ROLDAN DUARTE SPECIFIED DISEASES OF ANUS AND RECTUM K645 PERIANAL 12-30-2015 [facility] DUARTE VENOUS THROMBOSIS J00 ACUTE 11-07-2015 [facility] NASOPHARYNG PHYSICIAN ITIS COMMON GROUP COLD J029 ACUTE 11-07-2015 [facility] PHARYNGITIS PHYSICIAN GROUP UNSPECIFIED R05 COUGH 11-07-2015 [facility] K122 CELLULITIS 08-25-2015 ST AND ABSCESS RMEY OF MOUTH PHYSICIANS Z6830 BODY MASS 08-25-2015 ST INDEX BMI REM[facility] 30.0-30.9 PHYSICIANS ADULT [id number] ACUTE 05-27-2015 [place] SUPPURATIVE [facility] RUPT EAR DRUM UNS EAR J0190 ACUTE 05-27-2015 [place] SINUSITIS [facility] B349 VIRAL 02-10-2015 [facility] INFECTION [facility], UNSPECIFIED PLLC J209 ACUTE 02-10-2015 [facility] BRONCHITIS PHYSICIANS, UNSPECIFIED PLLC J449 CHRONIC 02-10-2015 [facility] PULMONARY [facility] P DISEASE UNS R0602 SHORTNESS 02-10-2015 [place] [facility] R079 CHEST PAIN 02-10-2015 [facility] R918 OTHER 02-10-2015 [place] NONSPECIFIC MEDICAL ABNORMAL IMAGING ASS FINDING OF LUNG FIELD M545 LOW BACK 01-13-2015 ST. PAIN REMY YUMIKO 9057 LATE EFF 07-21-2014 ST SPRAIN&STRA REMY IN W/O PHYSICIANS MENTION TENDON INJURY 50342 PAIN IN 07-19-2014 [facility] JOINT, ASSOCIATES ANKLE AND OF [facility] FOOT 68166 SWELLING OF 07-19-2014 [facility]B [facility] OF [facility] 45114 UNSPECIFIED 05-02-2015 [facility]GENCY ANKLE PHYSICIANS SPRAIN AND STRAIN 65054 UNSPECIFIED 12-18-2013 ST URETHRITIS [facility] HEAD OF DRAMA ST 7881 DYSURIA 12-18-2013 [facility] CTR HEAD OF DRAMA ST Medications Na ND Rx Da Fi [...] 1 24 PH CE AR TA MA [place] CY NO PH #3 EN 93 8 5- 32 5 HY 00 05 05 [address] 40 -0 -2 .0 00 TE ti OC 60 4- 6- 00 01 ve OD 12 20 20 18 AI ON 40 17 17 26 D -A 1 46 PH CE AR TA MA IL CY NO PH #3 93 7. 8 [...] CA #3 PS 93 UL 8 E AL 65 02 03 15 3 00 RI [...] YL 15 4- 0- 00 01 ve AL 02 20 20 17 AI ED 20 [...] 1 34 PH CE AR TA MA IL CY NO PH #3 EN 93 8 [...] Procedures Procedure DOS Code Location Performer Comment [facility] 84581 [place] CRYSTAL MODALITY 7 1/> AREAS CHIROPRAC TIC CENTE ULTRASOUN D EA [address] [place] [address] [place] CRYSTAL 1/> AREAS 7 EACH 15 CHIROPRAC MIN TIC CENTE NEUROMUSC REEDUCA APPL 00076 [place] CRYSTAL MODALITY 7 1/> AREAS CHIROPRAC ELEC TIC CENTE STIMJ UNATTENDE D CHIROPRAC 33415 [place] CRYSTAL TIC 7 MANIPULAT CHIROPRAC MOHINI TX TIC CENTE SPINAL 1-2 REGIONS CHIROPRAC 13447 [place] CRYSTAL TIC 7 MANIPLTV CHIROPRAC TX TIC CENTE EXTRASPIN AL 1/> REGION CHIROPRAC 76323 KISHOR CRYSTAL TIC 7 MANIPLTV CHIROPRAC TX TIC CENTE EXTRASPIN AL 1/> REGION CHIROPRAC 20234 KISHOR CRYSTAL TIC 7 MANIPULAT CHIROPRAC MOHINI TX TIC CENTE SPINAL 1-2 REGIONS APPL 99326 K[facility]OR CRYSTAL MODALITY 7 1/> AREAS CHIROPRAC TIC CENTE ULTRASOUN D EA [address] [place] [address] KISHOR CRYSTAL 1/> AREAS 7 EACH 15 CHIROPRAC MIN TIC CENTE NEUROMUSC REEDUCA WALKING L4360 ADVANCED ADVANCED BOOT 7 TECHNOLOG TECHNOLOG PNEUMATC IES INC IES INC &/ VACUUM PREFAB CUSTM FIT CRTCHS E0114 ADVANCED ADVANCED UNDARM 7 TECHNOLOG TECHNOLOG OTH THAN IES INC IES INC WOOD PAIR PAD TIP&HNDGR IP RADEX 23610 [facility] PACKER ANKLE 7 [facility] COMPLETE INC INC MINIMUM 3 VIEWS IAADIADOO 48362 [facility] 6 REMY TRAE STREPTOCO [place] [address] [facility] PACKER TROPONIN 5 [facility] H[facility] QUANTITAT INC INC MOHINI BLOOD 97607 [facility] PACK[facility] COUNT 5 [facility] H[facility] COMPLETE INC INC AUTO&AUTO DIFRNTL WBC RADIOLOGI 15128 [facility] PACKER C EXAM 5 [facility] CHEST 2 INC INC VIEWS FRONTAL&L ATERAL ECG 56325 [facility] SRIVASTAVA JR ROUTINE 5 [facility] W/LEAST P 12 LDS I&[place] [address] [facility] PACKER INFUSION 5 [facility] THERAPY/P INC INC ROPHYLAXI S /DX 1ST TO 1 HR THERAPEUT 81753 [facility] PACKER IC 5 [facility] INJECTION INC INC IV PUSH EACH NEW DRUG IMMUNOASS 37847 [facility] PACKER AY NFCT 5 [facility] H[facility] AGT ANTB INC INC QUAL/SEMI AVIVA 1 STEP CREATINE 96595 [facility] PACKER KINASE 5 [facility] TOTAL INC INC FIBRIN 77757 [facility] PACKER DGRADJ 5 [facility] PRODUCTS INC INC D-DIMER QUAL/SEMI AVIVA ECG 03351 [facility] PACKER ROUTINE 5 [facility] ECG INC INC W/LEAST 12 LDS TRCG ONLY W/O I&R INJECTION J2405 [facility] PACKER 5 [facility] ONDANSETR INC INC ON HCL PER 1 MG CREATINE 75608 [facility] PACKER KINASE MB 5 [facility] FRACTION INC INC ONLY COMPREHEN 03403 [facility] PACKER SIVE 5 [facility] METABOLIC INC INC PANEL RADEX [address] SPINE 5 REMY HUITRONBETH LUMBOSACR YUMIKO YUMIKO AL 2/[address] STERNEBER IC 5 REMY G GEORGE PROPHYLAC TIC/DX PHYSICIAN INJECTION S SUBQ/IM INJECTION J1040 ST STERNEBER 5 REMY G GEORGE METHYLPRE DNISOLONE PHYSICIAN ACETATE S 80 MG CRTCHS E0114 ADVANCED ADVANCED UNDARM 5 TECHNOLOG TECHNOLOG OTH THAN IES INC IES INC WOOD PAIR PAD TIP&HNDGR IP RADEX 40131 RADIOLOGY STEFANI SCO ANKLE 5 COMPLETE ASSOCIATE MINIMUM 3 S OF [facility] VIEWS ANKLE L4350 ADVANCED ADVANCED CONTROL 5 TECHNOLOG TECHNOLOG ORTHOSIS IES INC IES INC STIRRUP STYL RIGID PREFAB IADNA [address] NE[place]ER[place] 4 [facility] CTR MED CTR GONORRHOE HEAD OF DRAMA ST HEAD OF DRAMA ST AE AMPLIFIED PROBE TQ IADNA [address] CHLAMYDIA 4 [facility] CTR MED CTR TRACHOMAT HEAD OF DRAMA ST HEAD OF DRAMA ST IS AMPLIFIED PROBE TQ Encounters Encounter Start End Date Code Location Performer Type Date OFFICE 39261 K[facility]OR CRYSTAL OUTPATIEN 7 7 T NEW 30 CHIROPRAC MINUTES TIC CENTE EMERGENCY 06500 [facility] ORTIZ 7 7 PHYSICIAN DEPARTMEN S, PLLC T VISIT HIGH/URGE NT SEVERITY EMERGENCY 65372 [facility] 7 7 [facility] DEPARTMEN INC T VISIT MODERATE SEVERITY HOSPITAL [facility] - 7 7 [facility] OUTPATIEN INC T OFFICE 12561 [facility] 7 7 [facility] T VISIT 5 INC MINUTES HOSPITAL [facility] - 7 7 [facility] OUTPATIEN INC T OFFICE 32269 [facility] OUT[facility] 6 6 PHYSICIAN T VISIT GROUP 15 MINUTES OFFICE 40906 JAMAR RAMACHANDRAN OUTPATIEN 6 6 T [facility] 30 MINUTES OFFICE 59182 [facility] OUT[facility] 6 6 PHYSICIAN T VISIT GROUP [address] [facility] OUTPATIEN 6 6 REMY TRAE T VISIT 15 PHYSICIAN MINUTES S OFFICE 46703 [facility] GABRIELA OUTPATIEN 6 6 [facility] 15 MINUTES EMERGENCY 02070 [facility] COOPER DEPT 5 5 PHYSICIAN U VISIT S, [facility] HIGH SEVERITY& THREAT [facility] - 5 5 MEM HOSP OUTPATIEN INC T OFFICE 84878 [facility] GABRILEA OUTPATIEN [address] - 5 5 REMY OUTPATIEN YUMIKO T OFFICE [address] [facility] OUTPATIEN 5 5 REMY TRAE T VISIT 15 PHYSICIAN MINUTES S EMERGENCY 31821 [facility] ED[facility] 5 5 EMERGENCY LAR DEPARTMEN T VISIT PHYSICIAN HIGH/URGE S NT [facility] - 4 4 [facility] OUTPATIEN MED CTR T HEAD OF DRAMA ST
--- OUTSIDE RECORDS SUMMARY | 2017-01-01 11:28 | External Medical Summary Rpt | CCD ---
Author Author , JAIRO GILL Address Unknown Phone [email or web address] Care Team Providers Care Divemaster Name Role Phone JAMAR RAMACHANDRAN, JAMAR DUARTE Unavailable Unavailable JAMAR RAMACHANDRAN, JAMAR DUARTE Unavailable Unavailable [employer] Unavailable Unavailable INC, [employer] [facility] [employer] Unavailable Unavailable [facility] Unavailable Unavailable PHYSICIANS, [facility] KISHOR Unavailable Unavailable [facility] GABRIELA PADMINI, GABRIELA Unavailable Unavailable PADMINI WATTS, WATTS Unavailable Unavailable [facility] Unavailable Unavailable INC, [facility] Un[facility] Un[facility] Un[facility] P, [facility], Unavailable Unavailable [facility] EDUAR LAR, EDUAR Unavailable Unavailable [facility] Unavailable Unavailable [facility]ING [facility], [facility] CAROLA JR DWI, CAROLA Unavailable Unavailable JR DWI PETR LARKIN, PETR Unavailable Unavailable [facility], Unavailable Unavailable PLLC, [facility] Unavailable Unavailable OF NOT, [facility] RENUSCH, RENUSCH Unavailable Unavailable SOTINGEANU, Unavailable Unavailable SOTINGEANU [facility] Unavailable Unavailable MANAGEMENT INSTRUCTOR ST, [facility] MANAGEMENT INSTRUCTOR ST [facility] Unavailable Unavailable [facility]ICIANS, [facility] CALDERON, Unavailable Unavailable [facility] YUMIKO STERNEBERG GEORGE, Unavailable Unavailable STERNEBERG GEORGE STEFANI SCO, STEFANI SCO Unavailable Unavailable CRYSTAL, CRYSTAL Unavailable Unavailable Purpose Continuity of Care Document - 12-18-2013 through 2016 Problems Code Diagnosis DOS Provider Status [id number] PAIN IN 09-14-2016 [place] LEFT CHIROPRACTI SHOULDER C CENTE M546 PAIN IN 09-14-2016 [place] THORACIC CHIROPRACTI SPINE C CENTE M9902 SEGMENTAL & 09-14-2016 [place] SOMATIC CHIROPRACTI DYSFUNCTION C CENTE THORACIC REGION M9907 SEGMENTAL & 09-14-2016 [place] SOMATIC CHIROPRACTI DYSFUNCTION C CENTE UPPER EXTREMITY Z41172 PAIN IN 08-02-2016 [facility] M7989 OTHER 08-02-2016 [place] SPECIFIED MEDICAL SOFT TISSUE IMAGING ASS DISORDERS [id number] SPRAIN UNS 08-02-2016 [facility], LEFT ANKLE PLLC INITIAL ENCOUNTER E11284E UNSPECIFIED 08-02-2016 [place] INJURY MEDICAL LEFT ANKLE IMAGING ASS INITIAL ENCOUNTER Z720 TOBACCO USE 08-02-2016 [facility] INC I889 NONSPECIFIC 05-23-2016 [facility] LYMPHADENIT INC IS UNSPECIFIED J0100 ACUTE 03-17-2016 [facility] MAXILLARY PHYSICIAN SINUSITIS GROUP UNSPECIFIED K6289 OTHER 12-30-2015 ROLDAN DUARTE SPECIFIED DISEASES OF ANUS AND RECTUM K645 PERIANAL 12-30-2015 ROLDAN DUARTE VENOUS THROMBOSIS J00 ACUTE 11-07-2015 [facility] NASOPHARYNG PHYSICIAN ITIS COMMON GROUP COLD J029 ACUTE 11-07-2015 [facility] PHARYNGITIS PHYSICIAN GROUP UNSPECIFIED R05 COUGH 11-07-2015 [facility] GROUP K122 CELLULITIS 08-25-2015 ST AND ABSCESS REM[facility] OF MOUTH PHYSICIANS Z6830 BODY MASS 08-25-2015 ST INDEX BMI REMY 30.0-30.9 PHYSICIANS ADULT C07860 ACUTE 05-27-2015 [place] SUPPURATIVE [facility] RUPT EAR DRUM UNS EAR J0190 ACUTE 05-27-2015 [facility] SINUSITIS [facility] B349 VIRAL 02-10-2015 [facility] INFECTION [facility]YSICIANS, UNSPECIFIED PLLC J209 ACUTE 02-10-2015 [facility] BRONCHITIS PHYSICIANS, UNSPECIFIED PLLC J449 CHRONIC 02-10-2015 [facility] PULMONARY [facility] P DISEASE UNS R0602 SHORTNESS 02-10-2015 [place] [facility] R079 CHEST PAIN 02-10-2015 [facility] R918 OTHER 02-10-2015 [place] NONSPECIFIC MEDICAL ABNORMAL IMAGING ASS FINDING OF LUNG FIELD M545 LOW BACK 01-13-2015 ST. PAIN REMY YUMIKO 9057 LATE EFF 07-21-2014 ST SPRAIN&STRA REMY IN W/O PHYSICIANS MENTION TENDON INJURY 06888 PAIN IN 07-19-2014 [facility] ASSOCIATES ANKLE AND OF [facility] FOOT 77060 SWELLING OF 07-19-2014 [facility]B [facility] OF [facility] 05787 UNSPECIFIED 05-02-2015 [facility]GENCY ANKLE PHYSICIANS SPRAIN AND STRAIN 81504 UNSPECIFIED 12-18-2013 ST URETHRITIS [facility] CTR MANAGEMENT INSTRUCTOR ST 7881 DYSURIA 12-18-2013 [facility] CTR MANAGEMENT INSTRUCTOR ST Medications Na ND Rx Da Fi [...] 1 24 PH CE AR TA MA MN CY NO PH #3 EN 93 8 5- 32 5 HY 00 05 05 15 [address] 40 -0 -2 .0 00 TE ti OC 60 4- 6- 00 01 ve OD 12 20 20 18 AI ON 40 17 17 26 D -A 1 46 PH CE AR TA MA MN CY NO PH #3 93 7. 8 [...] CA #3 PS 93 UL 8 E KS 65 02 03 15 3 00 RI [...] YL 15 4- 0- 00 01 ve KS 02 20 20 17 AI ED 20 [...] 1 34 PH CE AR TA MA MN CY NO PH #3 EN 93 8 [...] Procedures Procedure DOS Code Location Performer Comment [facility] [address]0543 [place] CRYSTAL MODALITY 7 1/> AREAS CHIROPRAC TIC CENTE ULTRASOUN D EA [address] [place] [address] [place] CRYSTAL 1/> AREAS 7 EACH 15 CHIROPRAC MIN TIC CENTE NEUROMUSC REEDUCA APPL 34287 [place] CRYSTAL MODALITY 7 1/> AREAS CHIROPRAC ELEC TIC CENTE STIMJ UNATTENDE D CHIROPRAC 92177 [place] CRYSTAL TIC 7 MANIPULAT CHIROPRAC MOIHNI TX TIC CENTE SPINAL 1-2 REGIONS CHIROPRAC 30722 [place] CRYSTAL TIC 7 MANIPLTV CHIROPRAC TX TIC CENTE EXTRASPIN AL 1/> REGION CHIROPRAC 20843 KISHOR CRYSTAL TIC 7 MANIPLTV CHIROPRAC TX TIC CENTE EXTRASPIN AL 1/> REGION CHIROPRAC 61003 KISHOR CRYSTAL TIC 7 MANIPULAT CHIROPRAC MOHINI TX TIC CENTE SPINAL 1-2 REGIONS APPL 72514 K[facility] CRYSTAL MODALITY 7 1/> AREAS CHIROPRAC TIC CENTE ULTRASOUN D EA [address] [place] [address] KISHOR CRYSTAL 1/> AREAS 7 EACH 15 CHIROPRAC MIN TIC CENTE NEUROMUSC REEDUCA WALKING L4360 [facility]ANCED ADVANCED BOOT 7 TECHNOLOG TECHNOLOG PNEUMATC IES INC IES INC &/ VACUUM PREFAB CUSTM FIT CRTCHS E0114 AD[facility]ANCED ADVANCED UNDARM 7 TECHNOLOG TECHNOLOG OTH THAN IES INC IES INC WOOD PAIR PAD TIP&HNDGR IP RADEX 05261 [facility] PACKER ANKLE 7 [facility] COMPLETE INC INC MINIMUM 3 VIEWS IAADIADOO 66455 [facility] 6 REMY TRAE STREPTOCO [place] [address] [facility] PACKER TROPONIN 5 [facility] QUANTITAT INC INC MOHINI BLOOD 10351 [facility] PACKER COUNT 5 [facility] COMPLETE INC INC AUTO&AUTO DIFRNTL WBC RADIOLOGI 06990 [facility] PACKER C EXAM 5 [facility] CHEST 2 INC INC VIEWS FRONTAL&L ATERAL ECG 14732 [facility] SRIVASTAVA JR ROUTINE 5 [facility] W/LEAST P 12 LDS I&[place] [address] [facility] PACKER INFUSION 5 [facility] THERAPY/P INC INC ROPHYLAXI S /DX 1ST TO 1 HR THERAPEUT 62726 [facility] PACKER IC 5 [facility] INJECTION INC INC IV PUSH EACH NEW DRUG IMMUNOASS 69001 [facility] PACKER AY NFCT 5 [facility] AGT ANTB INC INC QUAL/SEMI AVIVA 1 STEP CREATINE 63073 [facility] PACKER KINASE 5 [facility] TOTAL INC INC FIBRIN 35723 [facility] PACKER DGRADJ 5 [facility] PRODUCTS INC INC D-DIMER QUAL/SEMI AVIVA ECG 24533 [facility] PACKER ROUTINE 5 [facility] ECG INC INC W/LEAST 12 LDS TRCG ONLY W/O I&R INJECTION J2405 [facility] PACKER 5 [facility] ONDANSETR INC INC ON HCL PER 1 MG CREATINE 00702 [facility] PACKER KINASE MB 5 MEM H[facility] FRACTION INC INC ONLY COMPREHEN 56540 [facility] PACKER SIVE 5 [facility] METABOLIC INC INC PANEL RADEX [address] [facility] 5 REMY HUITRONBETH LUMBOSACR YUMIKO YUMIKO AL 2/[address] [facility] IC 5 REMY G GEORGE PROPHYLAC TIC/DX PHYSICIAN INJECTION S SUBQ/IM INJECTION J1040 ST STER[facility] 5 REMY G GEORGE METHYLPRE DNISOLONE PHYSICIAN ACETATE S 80 MG CRTCHS E0114 ADVANCED ADVANCED UNDARM 5 TECHNOLOG TECHNOLOG OTH THAN IES INC IES INC WOOD PAIR PAD TIP&HNDGR IP RADEX 97996 RADIOLOGY STEFANI SCO ANKLE 5 COMPLETE ASSOCIATE MINIMUM 3 S OF [facility] VIEWS ANKLE L4350 ADVANCED ADVANCED CONTROL 5 TECHNOLOG TECHNOLOG ORTHOSIS IES INC IES INC STIRRUP STYL RIGID PREFAB IADNA [address] NEISSERIA 4 [facility] CTR MED CTR GONORRHOE MANAGEMENT INSTRUCTOR ST MANAGEMENT INSTRUCTOR ST AE AMPLIFIED PROBE TQ IADNA [address] CHLAMYDIA 4 [facility] CTR MED CTR TRACHOMAT MANAGEMENT INSTRUCTOR ST MANAGEMENT INSTRUCTOR ST IS AMPLIFIED PROBE TQ Encounters Encounter Start End Date Code Location Performer Type Date OFFICE 47906 K[facility]OR CRYSTAL OUTPATIEN 7 7 T NEW 30 CHIROPRAC MINUTES TIC CENTE EMERGENCY 68128 [facility] ORTIZ 7 7 PHYSICIAN DEPARTMEN S, PLLC T VISIT HIGH/URGE NT SEVERITY EMERGENCY 07526 [facility] 7 7 [facility] DEPARTMEN INC T VISIT MODERATE SEVERITY HOSPITAL [facility] - 7 7 [facility] OUTPATIEN INC T OFFICE 73599 [facility] 7 7 [facility] T VISIT 5 INC MINUTES HOSPITAL [facility] - 7 7 [facility] OUTPATIEN INC T OFFICE 86524 [facility] ART OUTPATIEN 6 6 PHYSICIAN T VISIT GROUP 15 MINUTES OFFICE 27699 JAMAR RAMACHANDRAN OUTPATIEN [address] [facility] 30 MINUTES OFFICE 15537 [facility] OUT[facility]IEN 6 6 PHYSICIAN T VISIT GROUP [address]ES [address] [facility] OUTPAT[facility]EN 6 6 REMY TRAE T VISIT 15 PHYSICIAN MINUTES S OFFICE 30415 [facility] GABRIELA OUTPATIEN 6 6 [facility] 15 MINUTES EMERGENCY 90490 ELIEZER COOPER DEPT 5 5 PHYSICIAN U VISIT S, [facility] HIGH SEVERITY& THREAT [facility] - 5 5 [facility] OUTPATIEN INC T OFFICE 36549 [facility] GABRIELA OUTPATIEN [address] - 5 5 REM[facility] OUTPATIEN YUMIKO T OFFICE [address] [facility] OUTPATIEN 5 5 REMY TRAE T VISIT 15 PHYSICIAN MINUTES S EMERGENCY 45934 [facility] 5 5 EMERGENCY LAR DEPARTMEN T VISIT PHYSICIAN HIGH/URGE S NT [facility] ST - 4 4 [facility] OUTPATI[facility] MED CTR T MANAGEMENT INSTRUCTOR ST
--- OUTSIDE RECORDS SUMMARY | 2017-01-01 11:29 | External Medical Summary Rpt ---
Author Author HENRRYAMELIA Alberts, [employer] Organization [employer] Address Unknown [...] in 3:08 PM source source data data [place]# 0.6 0.0 - x10(3)/ No No Jun [...] oeae ed DNA Specime probe n using [employer] A negativ e result does not rule out the presenc e of DNA in concent rations below\. br\the level of detecti on of the assay.\ .br\\.b r\The perform ance charact eristic s of this test were validat ed by [facility] are Laborat ory. This laborat ory is [...]
--- OUTSIDE RECORDS SUMMARY | 2017-01-01 11:29 | External Medical Summary Rpt ---
[...] in 3:08 PM source source data data [place]# 0.6 0.0 - x10(3)/ No No Jun [...] oeae ed DNA Specime probe n using [employer] A negativ e result does not rule out the presenc e of DNA in concent rations below\. br\the level of detecti on of the assay.\ .br\\.b r\The perform ance charact eristic s of this test were validat ed by [facility] are Laborat ory. This laborat [...]
[2017-01-01] MEDS ORDERED: VOLTAREN100 GM TP (12:10)
[2017-01-01] MEDS ORDERED: METHYLPRED DP4 MG PO (12:10)
--- NOTE | 2017-01-01 12:11 | Urgent Treatment Center Report ---
History of Present Issue Date/Time Seen by Provider 01/01/17 1157 Visit Reason Pt arrived:Walked Presenting Problem:PT C/O LEFT FOOT PAIN THAT STARTED BOTHERING HIM ABOUT 3 WEEKS AGO UNKNOWN IF ANY INJURY OCCURRED Location if Accident: Onset of symptoms date/time:/ or onset unknown for:MEDICAL HX UNKNOWN Have you (or family members/close friends) recently traveled outside the [place]? N If Yes, where/when: Have you had exposure to infectious disease within the past month? TB? Other? Specify: Source patient, RN notes reviewed Exam Limitations no limitations Comment Patient has had left foot and ankle pain for the past 3-4 weeks. He cannot recall an injury. He has sprained that ankle pretty seriously two times in the past year and a half, but not before this pain began. It hurts to bear weight, it hurts to point and flex, and it hurts even at rest. Pain seems to radiate from the sides of his ankle up the back of his leg. No swelling or redness. 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 ALLERGIES Coded Allergies: No Known Allergies (02/10/15) Home Medications Reported Medications PAROXETINE HCL (Paroxetine Hcl) 20 MG NG DAILY #30 History Medical History General CAD? No Angina: No [place]: No Hypertension? No Hyperlipidemia? No CHF? No DVT? No PE? No COPD? Yes Asthma? No Anemia? No GERD? No Gastric ulcers? No GI Bleed? No Hernia? No Thyroid Problems? No Hypothyroidism? No CVA? No Seizures? No Diabetes? No Renal Insuffiency? No UTI? No Stones? No BPH? No GB Disease: No Nephritic Syndrome? No Asplenia? No Hepatitis? No Sickle Cell Disease? No Arthritis? No Migraines? No Cataracts? No Glaucoma? No MRSA? No HIV? No TB? No Anxiety? No Depression? No Cancer? No Immunization HX DT/Tetanus Unknown Surgical Hx Previous Surgery?Y LEFT ARM SURGERY Social History Smoking Hx Smoker: Current Every Day Smoker Tobacco: Yes Type Cigarettes Packs/day 1 1/2 - 2 Packs Alcohol Alcohol: Yes Review of Systems All Other Systems Reviewed and Negative Musculoskeletal see HPI, joint pain Physical Exam Vital Signs Vital Signs Date Time Temp Pulse Resp B/P Pulse O2 O2 Flow FiO2 Ox Delivery Rate 01/01 1130 98.2 84 16 140/80 98 General Appearance normal appearance, no apparent distress Respiratory Status No: respiratory distress, trachea midline, chest symmetrical. Cardiovascular normal exam, regular rate/rhythm, no peripheral edema, no gallop, no JVD, no murmur, no rub Extremities normal range of motion, normal inspection, normal capillary refill, tenderness over distal Achilles insertion, particularly with ROM Neurologic alert, normal exam, oriented x 3 Mental status normal mood/affect Medical Decision Making LABS/Meds/Orders Pt receiving controlled substance in ED? No Results/Orders Orders Procedure Date/time Status ANKLE-RT-3 VIEWS 01/01 114 Active ANKLE-LT-3 VIEWS 01/01 114 Active FOOT-LT-3 VIEWS 01/01 1133 Active XRAY/CT/US XRAY/CT/US XRAY ankle, foot XR interpretation by reviewed by me Xray Results normal/NAD, no fracture seen Departure Departure Time of Disposition 1208 Disposition DC Home or Self Care(routine) Clinical Impression Primary Impression: Achilles tendinitis of left lower extremity Condition STABLE Referrals SAIRA PONCE DPM Patient Instructions DI for Achilles Tendinopathy Additional Instructions Rest. Ice at night after work. 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 F/U with Dr Ponce if not improving. Discharge Counseling Counseled pt/family regarding diagnosis, test results, medications/RX, home care, follow up needs Prescriptions Current Visit Scripts Methylprednisolone (Methylpred Dose-Trent) 4 MG PO UD #1 TRENT TAKE DIRECTED ON PACKAGING Diclofenac Sodium (Voltaren) 100 GM TP QIDP PRN ankle pain #1 TUBE at 1211
[2017-01-01 12:20] VITALS: BP 140/80
--- NOTE | 2017-01-01 14:36 | RADIOLOGY REPORT PS360 ---
FOOT-LT-3 VIEWS HISTORY: PAIN UNKNOWN INJURY ORDERING PHYSICIAN: NAYAN MONTEMAYOR PATIENT AGE: 31 years COMPARISON: None FINDINGS: No fracture or dislocation. No lytic or blastic change. There is normal mineralization.. The joint spaces are well-preserved. No significant degenerative/arthritic changes. No erosive changes evident. IMPRESSION: Negative left foot, no acute finding
--- NOTE | 2017-01-01 14:36 | RADIOLOGY REPORT PS360 ---
ANKLE-LT-3 VIEWS HISTORY: PAIN X 3 WEEKS...UNKNOWN INJURY ORDERING PHYSICIAN: NAYAN MONTEMAYOR PATIENT AGE: 31 years COMPARISON: 08/02/2016 FINDINGS: There are multiple small calcific densities distal to the tip of the fibula consistent with old avulsion injuries and/or accessory centers of ossification. No acute fracture or dislocation evident. There is mild spurring along the anterior distal tibia IMPRESSION: No change with no acute finding
== END 2017-01-01 12:22 | disposition home or self-care (01) ==
LOC: UTC 11:20
DX: M76.62 Achilles tendinitis, left leg (principal); F17.210 Nicotine dependence, cigarettes, uncomplicated